=== PATIENT | female | born 1930 | race Caucasian/White ===

== ENCOUNTER → 2018-07-10 | Outpatient (CLI) | payer MEDICARE ==
[2018-07-10 13:32] LABS: Ionized Calcium 5.1 mg/dL (4.5-5.3)
[2018-07-10 19:19] LABS: Vitamin D 25 Hydroxy 23.7 ng/mL (30.0-100.0)
[2018-07-10 19:57] LABS: Parathyroid Hormone Intact 115.6 pg/mL (14.0-72.0)
[2018-07-11 07:19] LABS: Creatinine 24 Hour,Urine 499.2 mg/24hr (800.0-1800.0)
== END ==
LOC: LABWHC1 11:35
PROVIDERS: ATTEND Nurse Practitioner Family
DX: N18.9 Chronic kidney disease, unspecified (principal); E83.52 Hypercalcemia
CPT/HCPCS: 36415; 82306; 82330; 82575; 83970

== ENCOUNTER → 2018-07-11 | Outpatient (CLI) | payer MEDICARE ==
--- NOTE | 2018-07-14 07:19 | US ---
EXAMINATION TYPE: US kidneys/renal and bladder DATE OF EXAM: 07/11/2018 COMPARISON: CLINICAL HISTORY: R94.4, N18.4. Abn labs, no pain EXAM MEASUREMENTS: Right Kidney: 5.8 x 2.3 x 3.0 cm Left Kidney: 8.9 x 3.8 x 5.4 cm Right Kidney: Appears small in size. Cortical thinning. Renal sinus appears echogenic. Left Kidney: appears larger in size compared to contralateral kidney Bladder: appears wnl Left jet seen Cortical medullary differentiation maintained. There is no ascites. IMPRESSION: Right kidney somewhat atrophic.
== END ==
LOC: RADUSMAIN 16:07
PROVIDERS: ATTEND Nurse Practitioner Family
DX: N26.1 Atrophy of kidney (terminal) (principal); N18.4 Chronic kidney disease, stage 4 (severe)
CPT/HCPCS: 76770

== ENCOUNTER → 2018-08-06 | Outpatient (CLI) | payer MEDICARE ==
[2018-08-06 14:21] LABS: Basophils # (A) 0.1 k/uL (0-0.2); Basophils % (A) 1 %; Eosinophils # (A) 0.2 k/uL (0-0.7); Eosinophils % (A) 1 %; HGB 15.2 gm/dL (11.4-16.0); Lymphocytes % (A) 32 %; MCH 29.7 pg (25.0-35.0); MCV 95.6 fL (80.0-100.0); Mean Platelet Volume 7.7; Monocytes # (A) 0.5 k/uL (0-1.0); Monocytes % (A) 4 %; Neutrophils # (A) 7.7 k/uL (1.3-7.7); Neutrophils % (A) 60 %; Platelet Count 215 k/uL (150-450); RBC 5.12 m/uL (3.80-5.40); RDW 12.4 % (11.5-15.5); WBC 12.8 k/uL (3.8-10.6)
[2018-08-06 14:48] LABS: Appearance,Urine Clear (Clear); Bacteria,Urine Rare /hpf; Bilirubin,Urine Negative (Negative); Blood,Urine Small (Negative); Color,Urine Yellow; Glucose,Urine (UA) Negative (Negative); Hyaline Casts,Urine 12 /lpf (0-2); Ketones,Urine Negative (Negative); Leukocyte Esterase,Urine Trace (Negative); Mucus,Urine Rare /hpf; Nitrite,Urine Negative (Negative); Protein,Urine Negative (Negative); RBC,Urine 19 /hpf (0-5); Specific Gravity,Urine 1.013 (1.001-1.035); Squamous Epithelial Cell,Urine 3 /hpf (0-4); Urobilinogen,Urine <2.0 mg/dL (<2.0); WBC,Urine 1 /hpf (0-5)
[2018-08-06 18:57] LABS: Parathyroid Hormone Intact 144.1 pg/mL (14.0-72.0)
[2018-08-06 21:10] LABS: Iron Saturation 21.34 (12.00-45.00); Protein, Total 6.2 g/dL (6.2-8.2)
[2018-08-06 21:17] LABS: Total Protein,Urine Random 10.4 mg/dL (0.0-13.5)
[2018-08-06 21:18] LABS: Creatinine,Urine Random 82.4 mg/dL
[2018-08-06 21:30] LABS: Albumin 4.2 g/dL (3.80-4.90); Anion Gap 5.4 mmol/L (4.00-12.00); Calcium 9.8 mg/dL (8.7-10.3); Carbon Dioxide 33.6 mmol/L (21.6-31.8); Magnesium 2.2 mg/dL (1.5-2.4); Phosphorus 3.5 mg/dL (2.4-5.1); Potassium 4.3 mmol/L (3.5-5.5); Uric Acid 11.5 mg/dL (2.9-7.7)
== END | disposition home or self-care (01) ==
LOC: LABWHC1 13:35
PROVIDERS: ATTEND Internal Medicine Nephrology
DX: N18.4 Chronic kidney disease, stage 4 (severe) (principal); D63.1 Anemia in chronic kidney disease; N25.81 Secondary hyperparathyroidism of renal origin; E55.9 Vitamin D deficiency, unspecified; M10.9 Gout, unspecified; N39.0 Urinary tract infection, site not specified
CPT/HCPCS: 36415; 80048; 81001; 82040; 82306; 82570; 82728; 83540; 83550; 83735; 83970; 84100; 84156; 84165; 84550; 85025; 86335

== ENCOUNTER 2018-08-17 06:36 | Inpatient (IN) | payer MEDICARE ==
[2018-08-17] MEDS ORDERED: SODIUM CHLORIDE 0.9% 500 ML 500 ML IV STA (06:43)
[2018-08-17] MEDS ORDERED: DILTIAZEM DRIP BOLUS FROM BAG 1 MG SOLN IV ONE ×2 (06:44→16:00)
--- NOTE | 2018-08-17 06:47 | ED ---
Chest Pain HPI - General Stated Complaint: chest pain Source: patient, EMS Mode of arrival: EMS Limitations: no limitations - History of Present Illness Initial Comments: She is a pleasant 88-year-old female presents to the emergency department today for evaluation of sudden onset of chest pain. Patient reports she woke this morning experiencing chest pain or palpitations. She called 911. Upon EMS arrival she was reported 8 out of 10 chest pain radiating from her chest to her back. She was noted be in A. fib with RVR with heart rate in the 150s. She was given full dose aspirin and sublingual nitro reports her pain resolved after the nitro. Upon arrival to the emergency department patient continues to have palpitations but reports chest pain is resolved. She also plans of mild headache which she attributes to taking the nitro. - Related Data Home Medications Medication Instructions Recorded Confirmed Metoprolol Tartrate [Lopressor] 25 mg PO BID 05/14/16 08/17/18 RX: ALPRAZolam [Xanax] 0.25 mg PO DAILY PRN 05/14/16 08/17/18 Allopurinol [Zyloprim] 100 mg PO DAILY 08/17/18 08/17/18 Apixaban [Eliquis] 2.5 mg PO BID 08/17/18 08/17/18 Ergocalciferol [Vitamin D2] 50,000 unit PO Q14D 08/17/18 08/17/18 Furosemide [Lasix] 20 mg PO Q48H 08/17/18 08/17/18 Furosemide [Lasix] 40 mg PO Q48H 08/17/18 08/17/18 RX: Citalopram Hydrobromide 20 mg PO DAILY 08/17/18 08/17/18 [CeleXA] RX: Lansoprazole 30 mg PO DAILY 08/17/18 08/17/18 Vit C/E/Zn/Coppr/Lutein/Zeaxan 1 cap PO BID 08/17/18 08/17/18 [Preservision Areds 2 Softgel] Allergies Allergy/AdvReac Type Severity Reaction Status Date / Time No Known Allergies Allergy Verified 08/17/18 07:48 Review of Systems ROS Statement: Those systems with pertinent positive or pertinent negative responses have been documented in the HPI. ROS Other: All systems not noted in ROS Statement are negative. EKG Findings - EKG Comments: EKG Findings:: EKG obtained at 6:42 AM, rate is 135, rhythm appears to be atrial flutter, there are ST depressions no acute elevations. Will repeat one patient's heart rate improves. Past Medical History Past Medical History: Hypertension, Osteoarthritis (OA) Additional Past Medical History / Comment(s): Hx of non healing ulcer L leg tx at [facility] and now healed. History of Any Multi-Drug Resistant Organisms: None Reported Past Surgical History: Adenoidectomy, Breast Surgery, Tonsillectomy, Tubal Ligation Additional Past Surgical History / Comment(s): Debridements L anterior leg ulcer , colonoscopies-normal, breast lumpectomy (unsure which side) benign. Past Anesthesia/Blood Transfusion Reactions: No Reported Reaction Past Psychological History: Depression Smoking Status: Former smoker Past Alcohol Use History: Daily Past Drug Use History: None Reported - Past Family History Sister(s) Family Medical History: CVA/TIA Son(s) Family Medical History: No Reported History Daughter(s) Family Medical History: No Reported History Mother Family Medical History: No Reported History Additional Family Medical History / Comment(s): Mother was healthy and at the age of 90yrs. Father Family Medical History: No Reported History Additional Family Medical History / Comment(s): Father at the age of 79yrs. He was healthy. General Exam Limitations: no limitations Course Vital Signs 08/17/18 08/17/18 08/17/18 06:39 06:40 06:42 Temperature 99.0 F Pulse Rate 141 H Respiratory 16 Rate Blood Pressure 164/93 O2 Sat by Pulse 95 91 L 95 Oximetry 08/17/18 08/17/18 08/17/18 06:48 07:00 07:20 Temperature Pulse Rate 144 H 141 H 138 H Respiratory 27 H 20 Rate Blood Pressure 150/100 148/95 O2 Sat by Pulse 92 L 94 L Oximetry 08/17/18 07:40 Temperature Pulse Rate 141 H Respiratory 16 Rate Blood Pressure 154/116 O2 Sat by Pulse 94 L Oximetry Chest Pain MDM - [facility] Patient was seen and evaluated immediately upon arrival to the emergency department, patient was in no acute distress but noted to be profoundly tachycardic with heart rate in the 150s Patient received ASA and Nitro prior to arrival with resolution of her chest pain Initial EKG appears to be A-flutter with a 2:1 block Cardiac workup ordered Cardizem Bolus and gtt ordered Heart rate Remains in the 140s after Cardizem Patient care was discussed with cardiology infusion nurse Dr. Hensley who recommends 2.5 mg push of IV Lopressor with a repeat dose 5 minutes later, states that if the patient does not respond to this begin an amiodarone drip. If patient remains in RVR would consider cardioversion. Patient care was discussed with Dr. Mccabe patient's primary care physician who accepts the admission with a consult to cardiology Critical Care Time Critical Care Time: Yes Total Critical Care Time: 30 Disposition Clinical Impression: Chest pain, Atrial flutter with rapid ventricular response, CKD (chronic kidney disease) Disposition: ADMITTED IP TO THIS HOSP Referrals: None,Stated [REFERRING] - 1-2 days
--- NOTE | 2018-08-17 07:06 | XR ---
EXAMINATION TYPE: XR chest 2V DATE OF EXAM: 08/17/2018 HISTORY: Chest Pain. REFERENCE: Previous study dated 05/14/2016. FINDINGS: Lung volumes are prominent. The heart is enlarged. There is vascular congestion and subtle interstitial change. I cannot exclude a small left effusion. IMPRESSION: 1. COPD. 2. CARDIOMEGALY. 3. VASCULAR CONGESTION AND MILD EDEMA. 4. I CANNOT EXCLUDE A SMALL LEFT EFFUSION.
[2018-08-17 07:08] LABS: Basophils # (A) 0.1 k/uL (0-0.2); Basophils % (A) 1 %; Eosinophils # (A) 0.3 k/uL (0-0.7); Eosinophils % (A) 1 %; HCT 47.7 % (34.0-46.0); HGB 14.8 gm/dL (11.4-16.0); Lymphocytes # (A) 3.6 k/uL (1.0-4.8); Lymphocytes % (A) 20 %; MCH 28.8 pg (25.0-35.0); Monocytes # (A) 0.8 k/uL (0-1.0); Monocytes % (A) 4 %; Neutrophils # (A) 13.4 k/uL (1.3-7.7); Neutrophils % (A) 73 %; Platelet Count 200 k/uL (150-450); RBC 5.13 m/uL (3.80-5.40); RDW 12.6 % (11.5-15.5); WBC 18.4 k/uL (3.8-10.6)
[2018-08-17] MEDS: DILTIAZEM 50 MG in SODIUM CHLORIDE 0.9% 40 ML IV SCH ×3 (07:18→22:41)
[2018-08-17] MEDS ORDERED: FUROSEMIDE 10 MG/ML 4 ML VIAL IV STA ×2 (07:23→16:05)
[2018-08-17 07:25] LABS: INR 1.1 (<1.2); Partial Thromboplastin Time 23.4 sec (22.0-30.0); Prothrombin Time 11.2 sec (9.0-12.0)
[2018-08-17 07:50] LABS: Albumin 3.8 g/dL (3.5-5.0); Calcium 9.4 mg/dL (8.4-10.2); Magnesium 1.9 mg/dL (1.6-2.3); Potassium 3.6 mmol/L (3.5-5.1); Total Protein 6.7 g/dL (6.3-8.2)
[2018-08-17 07:52] LABS: Creatine Kinase <20 U/L (30-135)
[2018-08-17 08:05] LABS: Creatine Kinase MB 0.5 ng/mL (0.0-2.4); Troponin I 0.023 ng/mL (0.000-0.034)
[2018-08-17] MEDS ORDERED: NALOXONE 0.4 MG/ML 1 ML VIAL IV PRN (08:06)
[2018-08-17] MEDS ORDERED: METOPROLOL TARTRATE 5 MG/5 ML VIAL IVP SCH (08:15)
[2018-08-17 14:15] LABS: Troponin I 0.344 ng/mL (0.000-0.034)
[2018-08-17 15:05] VITALS: BMI 27.1
[2018-08-17] MEDS: ALLOPURINOL 100 MG TAB PO SCH (15:46)
[2018-08-17] MEDS: PANTOPRAZOLE 40 MG TABLET PO SCH (15:46)
[2018-08-17] MEDS: CITALOPRAM HYDROBROMIDE 20 MG TAB PO SCH (15:46)
[2018-08-17] MEDS: APIXABAN 2.5 MG TABLET PO SCH ×2 (15:46→20:13)
[2018-08-17] MEDS ORDERED: MORPHINE SULFATE 2 MG/ML SYRINGE IVP STA (16:05)
[2018-08-17] MEDS: ALPRAZolam 0.25 MG TAB PO PRN (16:15)
[2018-08-17] MEDS: METOPROLOL TARTRATE 25 MG TAB PO SCH (17:32)
[2018-08-17] MEDS: VIT A,C & E-LUTEIN-MINERALS 1 EACH TAB PO SCH ×2 (17:34→22:41)
[2018-08-18] MEDS: DILTIAZEM 50 MG in SODIUM CHLORIDE 0.9% 40 ML IV SCH (04:28)
[2018-08-18] MEDS: PANTOPRAZOLE 40 MG TABLET PO SCH (06:14)
--- NOTE | 2018-08-18 07:24 | XR ---
EXAMINATION TYPE: XR chest 2V DATE OF EXAM: 08/18/2018 COMPARISON: 08/17/2018 HISTORY: 88-year-old female CHF, difficulty breathing, shortness of breath TECHNIQUE: PA and lateral views FINDINGS: Heart mildly enlarged. Bilateral hilar prominence with diffuse interstitial opacities, hyperinflation , and relative upper lung lucencies. Focal rounded left upper lobe opacity. Small effusions. Increase d from prior exam. Some patchy bibasilar densities are also increased. IMPRESSION: 1. CHF superimposed on COPD. There is early interstitial pulmonary edema, slightly worsened from prio r. 2. Small effusions with adjacent atelectasis and/or consolidation. 3. Focal nodular density at the left upper lobe previously obscured by an EKG lead. Continued follow- up recommended to ensure clearance with treatment. If the finding persists, CT may be indicated.
[2018-08-18] MEDS: METOPROLOL TARTRATE 25 MG TAB PO SCH (07:49)
[2018-08-18 08:17] LABS: Calcium 9.6 mg/dL (8.4-10.2)
[2018-08-18 08:27] LABS: Basophils # (A) 0.1 k/uL (0-0.2); Basophils % (A) 0 %; Eosinophils # (A) 0.1 k/uL (0-0.7); Eosinophils % (A) 0 %; HCT 50.1 % (34.0-46.0); HGB 15.1 gm/dL (11.4-16.0); Lymphocytes # (A) 4.1 k/uL (1.0-4.8); Lymphocytes % (A) 20 %; MCH 28.4 pg (25.0-35.0); MCHC 30.1 g/dL (31.0-37.0); MCV 94.3 fL (80.0-100.0); Mean Platelet Volume 8.3; Monocytes # (A) 0.7 k/uL (0-1.0); Monocytes % (A) 3 %; Neutrophils # (A) 16.1 k/uL (1.3-7.7); Neutrophils % (A) 76 %; Platelet Count 190 k/uL (150-450); RBC 5.32 m/uL (3.80-5.40); RDW 12.9 % (11.5-15.5); WBC 21.2 k/uL (3.8-10.6)
[2018-08-18 08:29] LABS: Potassium 4.6 mmol/L (3.5-5.1)
[2018-08-18] MEDS ORDERED: FUROSEMIDE 20 MG TAB PO SCH (09:00)
[2018-08-18] MEDS: APIXABAN 2.5 MG TABLET PO SCH ×2 (09:21→20:09)
[2018-08-18] MEDS: CITALOPRAM HYDROBROMIDE 20 MG TAB PO SCH (09:22)
[2018-08-18] MEDS: ALLOPURINOL 100 MG TAB PO SCH (09:22)
[2018-08-18] MEDS: ALPRAZolam 0.25 MG TAB PO PRN (10:03)
[2018-08-18] MEDS: VIT A,C & E-LUTEIN-MINERALS 1 EACH TAB PO SCH ×2 (10:05→20:09)
[2018-08-18] MEDS ORDERED: METOPROLOL TARTRATE 50 MG TAB PO STA (13:30)
--- NOTE | 2018-08-18 15:28 | P.CRDCN ---
History of Present Illness Consult date: 08/18/18 Requesting physician: William Mccabe Consult reason: congestive heart failure Chief complaint: Shortness of breath History of present illness: This is a pleasant 88-year-old female who follows regularly with Dr. VC Wang in the office. She has a known history of paroxysmal atrial fibrillation, renal insufficiency, hypertension, osteoarthritis with recent hip fracture, she resides at [facility]. She presented to the hospital on this occasion with symptoms of chest pressure, feeling her heart racing fast, and associated shortness of breath. EMS arrival, her EKG showed atrial fibrillation with a rapid ventricular response. Chest x-ray showed COPD, cardiomegaly, vascular congestion and mild edema. Small left effusion cannot be excluded. She was given a dose of IV Lasix in the emergency room and then resumed on her home dose of oral diuretics. Repeat chest x-ray was performed this morning which revealed congestive heart failure superimposed on COPD, early interstitial pulmonary edema worse from prior x-ray. EKG shows atrial fibrillation with rapid ventricular response. I pressure 100/68 with a heart rate of 108 to 1:30, 91% on 5 L of oxygen. White blood cell count 18.4 on admission, 21.2 this morning. Hemoglobin 15.1, platelet count 190. Sodium 143 , potassium 4.6, BUN 39, creatinine 1.4. BNP level 2720. TSH 1.28. Troponin 0.023, 0.344, 0.426. At the time of my examination this morning, patient had been given Xanax she was quite sleepy, she is still complaining of significant shortness of breath, her heart rate continues to be in the 1 teens to 130 range on Cardizem at 10 mg per hour. Past Medical History Past Medical History: Atrial Fibrillation, Hypertension, Osteoarthritis (OA) Additional Past Medical History / Comment(s): Renal failure, long-term anticoagulation, hypertension, anxiety, depression, GERD History of Any Multi-Drug Resistant Organisms: None Reported Past Surgical History: Adenoidectomy, Breast Surgery, Tonsillectomy, Tubal Ligation Additional Past Surgical History / Comment(s): Debridements L anterior leg ulcer , colonoscopies-normal, breast lumpectomy (unsure which side) benign. Past Anesthesia/Blood Transfusion Reactions: No Reported Reaction Past Psychological History: Depression Smoking Status: Former smoker Past Alcohol Use History: Daily Past Drug Use History: None Reported - Past Family History Sister(s) Family Medical History: CVA/TIA Son(s) Family Medical History: No Reported History Daughter(s) Family Medical History: No Reported History Mother Family Medical History: No Reported History Additional Family Medical History / Comment(s): Mother was healthy and at the age of 90yrs. Father Family Medical History: No Reported History Additional Family Medical History / Comment(s): Father at the age of 79yrs. He was healthy. Medications and Allergies Home Medications Medication Instructions Recorded Confirmed Type ALPRAZolam [Xanax] 0.25 mg PO DAILY PRN 05/14/16 08/17/18 History Metoprolol Tartrate [Lopressor] 25 mg PO BID 05/14/16 08/17/18 History Allopurinol [Zyloprim] 100 mg PO DAILY 08/17/18 08/17/18 History Apixaban [Eliquis] 2.5 mg PO BID 08/17/18 08/17/18 History Citalopram Hydrobromide [CeleXA] 20 mg PO DAILY 08/17/18 08/17/18 History Ergocalciferol [Vitamin D2] 50,000 unit PO Q14D 08/17/18 08/17/18 History Furosemide [Lasix] 20 mg PO Q48H 08/17/18 08/17/18 History Furosemide [Lasix] 40 mg PO Q48H 08/17/18 08/17/18 History Lansoprazole 30 mg PO DAILY 08/17/18 08/17/18 History Vit C/E/Zn/Coppr/Lutein/Zeaxan 1 cap PO BID 08/17/18 08/17/18 History [Preservision Areds 2 Softgel] Allergies Allergy/AdvReac Type Severity Reaction Status Date / Time No Known Allergies Allergy Verified 08/17/18 07:48 Physical Exam Vitals: Vital Signs Temp Pulse Pulse Resp BP BP Pulse Ox 08/18/18 11:41 97.4 F L 108 H 18 101/68 91 L 08/18/18 07:51 98.2 F 130 H 18 146/87 95 08/18/18 04:00 98.5 F 107 H 18 124/77 92 L 08/18/18 00:00 99.1 F 100 20 129/74 93 L 12/16/18 20:00 96.7 F L 98 20 126/72 92 L 08/17/18 16:00 97.3 F L 124 H 22 137/75 93 L 08/17/18 13:52 97.6 F 113 H 18 122/94 96 08/17/18 13:20 116 H 13 129/94 95 08/17/18 13:00 112 H 22 128/99 96 08/17/18 12:40 122 H 23 140/103 96 08/17/18 12:20 116 H 18 131/90 94 L Intake and Output 08/17/18 08/18/18 08/18/18 22:59 06:59 14:59 Intake Total 70 170 200 Balance 70 170 200 Intake: IV 120 .9 120 Intake, IV Titration 70 50 Amount Diltiazem 50 mg In Sodium 50 50 Chloride 0.9% 40 ml @ Per Protocol IV .Q0M KEVIN Rx#:[id number] Sodium Chloride 0.9% 500 20 ml 500 ml @ 999 mls/hr IV .Q31M [facility]A Rx#:[id number] Oral 200 Other: Voiding Method Bedpan Diaper Weight 69.4 kg PHYSICAL EXAMINATION: GENERAL: 88-year-old female in no acute distress at the time of my examination HEENT: Head is atraumatic, normocephalic. Pupils equal, round. Sclera anicteric. Conjunctiva are clear. Mucous membranes of the mouth are moist. Neck is supple. There is no elevated jugular venous pressure. No carotid bruit is heard. HEART EXAMINATION: R S1 and S2 irregularly irregular a systolic murmur is heard. CHEST EXAMINATION: Severe fine rales to bilateral bases with diminished air entry to the bases. ABDOMEN: Soft, nontender. Bowel sounds are heard. No organomegaly noted. EXTREMITIES: 2+ peripheral pulses with trace evidence of peripheral edema and no calf tenderness noted. NEUROLOGIC patient is awake, alert and oriented X3. . Results 08/18/18 07:10 08/18/18 07:10 Cardiac Enzymes 08/17/18 08/18/18 Range/Units 12:47 07:10 CK-MB (CK-2) 2.0 (0.0-2.4) ng/mL Troponin I 0.344 H* 0.426 H* (0.000-0.034) ng/mL CBC 08/18/18 Range/Units 07:10 WBC 21.2 H (3.8-10.6) k/uL RBC 5.32 (3.80-5.40) m/uL Hgb 15.1 (11.4-16.0) gm/dL Hct 50.1 H (34.0-46.0) % Plt Count 190 (150-450) k/uL Comprehensive Metabolic Panel 08/18/18 Range/Units 07:10 Sodium 143 (137-145) mmol/L Potassium 4.6 (3.5-5.1) mmol/L Chloride 105 (98-107) mmol/L Carbon Dioxide 24 (22-30) mmol/L BUN 39 H (7-17) mg/dL Creatinine 1.44 H (0.52-1.04) mg/dL Glucose 133 H (74-99) mg/dL Calcium 9.6 (8.4-10.2) mg/dL Current Medications Generic Name Dose Route Start Last Admin Trade Name Freq PRN Reason Stop Dose Admin Allopurinol 100 mg 08/17/18 12:15 08/18/18 09:22 Zyloprim PO 100 mg DAILY KEVIN Administration Alprazolam 0.25 mg 08/17/18 12:04 08/18/18 10:03 Xanax PO 0.25 mg DAILY PRN Administration Anxiety Apixaban 2.5 mg 08/17/18 12:15 08/18/18 09:21 Eliquis PO 2.5 mg BID KEVIN Administration Citalopram Hydrobromide 20 mg 08/17/18 12:15 08/18/18 09:22 Celexa PO 20 mg DAILY KEVIN Administration Furosemide 40 mg 08/18/18 21:00 Lasix IV Q12HR KEVIN Diltiazem HCl 50 mg/ Sodium 50 mls @ 0 mls/hr 08/17/18 06:45 08/18/18 04:28 Chloride IV 10 mls/hr .Q0M KEVIN 10 mls/hr Administration Protocol Per Protocol Metoprolol Tartrate 25 mg 08/17/18 21:00 08/18/18 07:49 Lopressor PO 25 mg BID KEVIN Administration Multivitamins/Minerals 1 each 08/17/18 12:15 08/18/18 10:05 Ivite PO 1 each BID KEVIN Administration Naloxone HCl 0.2 mg 08/17/18 08:06 Narcan IV Q2M PRN Opioid Reversal Pantoprazole Sodium 40 mg 08/17/18 12:15 08/18/18 06:14 Protonix PO 40 mg [id number] Administration Intake and Output 08/17/18 08/18/18 08/18/18 22:59 06:59 14:59 Intake Total 70 170 200 Balance 70 170 200 Intake: IV 120 .9 120 Intake, IV Titration 70 50 Amount Diltiazem 50 mg In Sodium 50 50 Chloride 0.9% 40 ml @ Per Protocol IV .Q0M KEVIN Rx#:[id number] Sodium Chloride 0.9% 500 20 ml 500 ml @ 999 mls/hr IV .Q31M STA Rx#:[id number] Oral 200 Other: Voiding Method Bedpan Diaper Weight 69.4 kg 08/18/18 07:10 08/18/18 07:10 EKG Interpretations (text) EKG shows atrial fibrillation with rapid ventricular response Assessment and Plan Plan: Assessment and plan #1 atrial fibrillation with rapid ventricular response, paroxysmal, on anticoagulation in the form of Eliquis #2 systolic congestive heart failure acute on chronic, could be exacerbated by A. fib with RVR. #3 hypertension #4 recent hip surgery Plan We will obtain an echocardiogram with Doppler study, check a TSH level. Continue anticoagulation. We will also discontinue the oral diuretics and start the patient on IV Lasix. Continue to monitor intake and output along with daily weights and daily lytes BUN and creatinine. IV Cardizem will be discontinued and patient's dose of beta annemarie increased. Further recommendations to follow. DNP note has been reviewed, I agree with a documented findings and plan of care. Patient was seen and examined.
--- NOTE | 2018-08-18 17:11 | P.HPIM ---
History of Present Illness H&P Date: 08/18/18 Chief Complaint: Shortness of breath This is a pleasant 88-year-old female patient of Dr. Mccabe's. Known history of paroxysmal atrial fibrillation renal insufficiency hypertension osteoarthritis with recent hip fracture. Patient resides at [facility]. Currently presents to the hospital with chest pressure and heart racing shortness of breath. On arrival her EKG demonstrated A. fib with rapid ventricular response to history x-ray demonstrated COPD cardiomegaly with vascular congestion and edema EKG this morning demonstrates A. fib with rapid ventricular response. Pressure was 100/68 sats were 91% on 5 L. White count was 18.4 on admission 21.2 this morning BUN 39 creatinine 1.4 this is her baseline Review of Systems Constitutional: Reports as per HPI Ears, nose, mouth and throat: Reports as per HPI Cardiovascular: Reports chest pain, Reports irregular heart beat, Reports rapid heart beat, Reports shortness of breath Respiratory: Reports as per HPI Gastrointestinal: Reports as per HPI Genitourinary: Reports as per HPI Menstruation: Reports as per HPI Musculoskeletal: Reports as per HPI Integumentary: Reports as per HPI Neurological: Reports as per HPI Psychiatric: Reports as per HPI Past Medical History Past Medical History: Atrial Fibrillation, Hypertension, Osteoarthritis (OA) Additional Past Medical History / Comment(s): Renal failure, long-term anticoagulation, hypertension, anxiety, depression, GERD History of Any Multi-Drug Resistant Organisms: None Reported Past Surgical History: Adenoidectomy, Breast Surgery, Tonsillectomy, Tubal Ligation Additional Past Surgical History / Comment(s): Debridements L anterior leg ulcer , colonoscopies-normal, breast lumpectomy (unsure which side) benign. Past Anesthesia/Blood Transfusion Reactions: No Reported Reaction Past Psychological History: Depression Smoking Status: Former smoker Past Alcohol Use History: Daily Past Drug Use History: None Reported - Past Family History Sister(s) Family Medical History: CVA/TIA Son(s) Family Medical History: No Reported History Daughter(s) Family Medical History: No Reported History Mother Family Medical History: No Reported History Additional Family Medical History / Comment(s): Mother was healthy and at the age of 90yrs. Father Family Medical History: No Reported History Additional Family Medical History / Comment(s): Father at the age of 79yrs. He was healthy. Medications and Allergies Home Medications Medication Instructions Recorded Confirmed Type ALPRAZolam [Xanax] 0.25 mg PO DAILY PRN 05/14/16 08/17/18 History Metoprolol Tartrate [Lopressor] 25 mg PO BID 05/14/16 08/17/18 History Allopurinol [Zyloprim] 100 mg PO DAILY 08/17/18 08/17/18 History Apixaban [Eliquis] 2.5 mg PO BID 08/17/18 08/17/18 History Citalopram Hydrobromide [CeleXA] 20 mg PO DAILY 08/17/18 08/17/18 History Ergocalciferol [Vitamin D2] 50,000 unit PO Q14D 08/17/18 08/17/18 History Furosemide [Lasix] 20 mg PO Q48H 08/17/18 08/17/18 History Furosemide [Lasix] 40 mg PO Q48H 08/17/18 08/17/18 History Lansoprazole 30 mg PO DAILY 08/17/18 08/17/18 History Vit C/E/Zn/Coppr/Lutein/Zeaxan 1 cap PO BID 08/17/18 08/17/18 History [Preservision Areds 2 Softgel] Allergies Allergy/AdvReac Type Severity Reaction Status Date / Time No Known Allergies Allergy Verified 08/17/18 07:48 Physical Exam Osteopathic Statement: *. No significant issues noted on an osteopathic structural exam other than those noted in the History and Physical/Consult. Vitals: Vital Signs Temp Pulse Resp BP Pulse Ox 08/18/18 12:00 104 H 08/18/18 11:41 97.4 F L 108 H 18 101/68 91 L 08/18/18 07:51 98.2 F 130 H 18 146/87 95 08/18/18 04:00 98.5 F 107 H 18 124/77 92 L 08/18/18 00:00 99.1 F 100 20 129/74 93 L 08/17/18 20:00 96.7 F L 98 20 126/72 92 L Intake and Output 08/18/18 08/18/18 08/18/18 06:59 14:59 22:59 Intake Total 170 200 Balance 170 200 Intake: IV 120 .9 120 Intake, IV Titration 50 Amount Diltiazem 50 mg In Sodium 50 Chloride 0.9% 40 ml @ Per Protocol IV .Q0M [facility] Rx#:[id number] Oral 200 Other: Weight 69.4 kg General: [Patient awake, alert and oriented times 3. Patient in no acute distress.] HEENT: [PERRL. EOMI. No pharyngeal erythema or exudate.] Neck: [No adenopathy.] Cardiac: [Heart regularly irregular rapid rate No S3. No S4. No clicks, rubs.Systolic ejection murmur noted Lungs ; fine basilar crackles, diminished air exchange to both lung obrien Abdomen: [No mass. No organomegaly. Bowel sounds presnt and normoactive in all 4 quadrants.] Extremes: [No edema no cyanosis no claudication normal pulses] : [] Musculoskeletal: [No joint erythema, edema or tenderness.] Skin: [No rash.] Neurologic: [No lateralizing deficits. CN II - XII grossly intact.] Lymphatic: [No adenopathy.] Results CBC & Chem 7: 08/18/18 07:10 08/18/18 07:10 Labs: Abnormal Lab Results - Last 24 Hours (Table) 08/18/18 08/18/18 08/18/18 Range/Units 07:10 07:10 07:10 WBC 21.2 H (3.8-10.6) k/uL Hct 50.1 H (34.0-46.0) % MCHC 30.1 L (31.0-37.0) g/dL Neutrophils # 16.1 H (1.3-7.7) k/uL D-Dimer (<0.60) mg/L FEU BUN 39 H (7-17) mg/dL Creatinine 1.44 H (0.52-1.04) mg/dL Glucose 133 H (74-99) mg/dL Troponin I 0.426 H* (0.000-0.034) ng/mL 08/18/18 Range/Units 13:57 WBC (3.8-10.6) k/uL Hct (34.0-46.0) % MCHC (31.0-37.0) g/dL Neutrophils # (1.3-7.7) k/uL D-Dimer 0.64 H (<0.60) mg/L FEU BUN (7-17) mg/dL Creatinine (0.52-1.04) mg/dL Glucose (74-99) mg/dL Troponin I (0.000-0.034) ng/mL Thrombosis Risk Factor Assmnt - Choose All That Apply Any of the Below Risk Factors Present?: No Other Risk Factors: No Thrombosis Risk Factor Assessment Level: Very Low Risk Assessment and Plan (1) Atrial flutter with rapid ventricular response Current Visit: Yes Status: Acute Code(s): I48.92 - UNSPECIFIED ATRIAL FLUTTER SNOMED Code(s): 3417165 (2) CKD (chronic kidney disease) Current Visit: Yes Status: Acute Code(s): N18.9 - CHRONIC KIDNEY DISEASE, UNSPECIFIED SNOMED Code(s): 670360932 (3) Chest pain Current Visit: Yes Status: Acute Code(s): R07.9 - CHEST PAIN, UNSPECIFIED SNOMED Code(s): 14915830 Plan: Assessment and plan Atrial fibrillation with rapid ventricular response and anticoagulation Eliquis Systolic congestive heart failure acute on chronic Hypertension Renal insufficiency Cardiology consult Consider nephrology consult however patient's BUN and creatinine are currently baseline
[2018-08-18 19:10] LABS: Appearance,Urine Clear (Clear); Bacteria,Urine Few /hpf; Bilirubin,Urine Negative (Negative); Blood,Urine Moderate (Negative); Color,Urine Yellow; Glucose,Urine (UA) Negative (Negative); Hyaline Casts,Urine 11 /lpf (0-2); Ketones,Urine Negative (Negative); Leukocyte Esterase,Urine Small (Negative); Mucus,Urine Rare /hpf; Nitrite,Urine Negative (Negative); Protein,Urine Negative (Negative); RBC,Urine 7 /hpf (0-5); Specific Gravity,Urine 1.011 (1.001-1.035); Squamous Epithelial Cell,Urine 2 /hpf (0-4); Urobilinogen,Urine <2.0 mg/dL (<2.0); WBC,Urine 3 /hpf (0-5)
[2018-08-18] MEDS: METOPROLOL TARTRATE 50 MG TAB PO SCH (20:09)
[2018-08-18] MEDS: FUROSEMIDE 10 MG/ML 4 ML VIAL IV SCH (20:10)
[2018-08-18 20:49] LABS: Glucose,Whole Blood 123 mg/dL (75-99)
[2018-08-18] MEDS ORDERED: AZITHROMYCIN 500 MG in SODIUM CHLORIDE 0.9% 250 ML IVPB SCH (22:15)
[2018-08-19 06:03] LABS: Glucose,Whole Blood 142 mg/dL (75-99)
[2018-08-19] MEDS: PANTOPRAZOLE 40 MG TABLET PO SCH (06:06)
[2018-08-19] MEDS ORDERED: FUROSEMIDE 40 MG TAB PO SCH (09:00)
[2018-08-19] MEDS: CITALOPRAM HYDROBROMIDE 20 MG TAB PO SCH (10:00)
[2018-08-19] MEDS: APIXABAN 2.5 MG TABLET PO SCH ×2 (10:00→20:25)
[2018-08-19] MEDS: ALLOPURINOL 100 MG TAB PO SCH (10:00)
[2018-08-19] MEDS: FUROSEMIDE 10 MG/ML 4 ML VIAL IV SCH ×2 (10:01→20:25)
[2018-08-19] MEDS: METOPROLOL TARTRATE 50 MG TAB PO SCH ×2 (10:01→20:24)
[2018-08-19] MEDS: VIT A,C & E-LUTEIN-MINERALS 1 EACH TAB PO SCH ×2 (10:01→20:24)
[2018-08-19] MEDS ORDERED: DEXTROSE 5% IN WATER 100 ML with AMIODARONE 150 MG IV ONE (11:22)
--- NOTE | 2018-08-19 11:29 | P.NPCON ---
History of Present Illness - Reason for Consult acute renal failure - History of Present Illness Reason for consultation: Acute kidney injury History of present illness: Patient is a 88-year-old female seen in renal consultation for acute kidney injury. Patient's creatinine in May 2016 was 0.77 but this ear of renal function seems to have declined. Creatinine was in the range of 1.7-1.9 the last 2 months. This admission her creatinine is stable near 1.4. Patient presented to the hospital with left-sided chest pain. She was also having pain in her left arm. She was also noted to be in A. fib with RVR and was started on Cardizem drip. Her heart rate is still in the range of 110-120. She is maintained on Lopressor. She is also on anticoagulation. She was noted to have vascular congestion on chest x-ray and is currently maintained on Lasix 40 mg IV twice daily. Admits to good urine output. No hematuria or dysuria. No history of diabetes. No proteinuria noted on UA. No vomiting or diarrhea. Denies use of NSAIDs. Oral intake is fair. Vital signs are stable. General: The patient appeared well nourished and normally developed. HEENT: Head exam is unremarkable. Neck is without jugular venous distension. LUNGS: Lungs are clear to auscultation and percussion. Breath sounds decreased. HEART: Irregular rate and rhythm. ABDOMEN: Abdominal exam reveals normal bowel sounds. Non-tender and non- distended. No evidence of peritonitis. EXTREMITITES: No clubbing, cyanosis, or edema. Past Medical History Past Medical History: Atrial Fibrillation, Hypertension, Osteoarthritis (OA) Additional Past Medical History / Comment(s): Renal failure, long-term anticoagulation, hypertension, anxiety, depression, GERD History of Any Multi-Drug Resistant Organisms: None Reported Past Surgical History: Adenoidectomy, Breast Surgery, Tonsillectomy, Tubal Ligation Additional Past Surgical History / Comment(s): Debridements L anterior leg ulcer , colonoscopies-normal, breast lumpectomy (unsure which side) benign. Past Anesthesia/Blood Transfusion Reactions: No Reported Reaction Past Psychological History: Depression Smoking Status: Former smoker Past Alcohol Use History: Daily Past Drug Use History: None Reported - Past Family History Sister(s) Family Medical History: CVA/TIA Son(s) Family Medical History: No Reported History Daughter(s) Family Medical History: No Reported History Mother Family Medical History: No Reported History Additional Family Medical History / Comment(s): Mother was healthy and at the age of 90yrs. Father Family Medical History: No Reported History Additional Family Medical History / Comment(s): Father at the age of 79yrs. He was healthy. Medications and Allergies Home Medications Medication Instructions Recorded Confirmed Type ALPRAZolam [Xanax] 0.25 mg PO DAILY PRN 05/14/16 08/17/18 History Metoprolol Tartrate [Lopressor] 25 mg PO BID 05/14/16 08/17/18 History Allopurinol [Zyloprim] 100 mg PO DAILY 08/17/18 08/17/18 History Apixaban [Eliquis] 2.5 mg PO BID 08/17/18 08/17/18 History Citalopram Hydrobromide [CeleXA] 20 mg PO DAILY 08/17/18 08/17/18 History Ergocalciferol [Vitamin D2] 50,000 unit PO Q14D 08/17/18 08/17/18 History Furosemide [Lasix] 20 mg PO Q48H 08/17/18 08/17/18 History Furosemide [Lasix] 40 mg PO Q48H 08/17/18 08/17/18 History Lansoprazole 30 mg PO DAILY 08/17/18 08/17/18 History Vit C/E/Zn/Coppr/Lutein/Zeaxan 1 cap PO BID 08/17/18 08/17/18 History [Preservision Areds 2 Softgel] Allergies Allergy/AdvReac Type Severity Reaction Status Date / Time No Known Allergies Allergy Verified 08/17/18 07:48 Physical Exam Vitals: Vital Signs Temp Pulse Resp BP Pulse Ox 08/19/18 08:00 97.8 F 120 H 18 103/57 97 08/19/18 04:00 97.6 F 113 H 18 92/60 95 08/19/18 00:00 97.8 F 111 H 20 92/71 96 08/18/18 20:00 97.7 F 111 H 20 108/79 96 08/18/18 16:00 97.9 F 90 20 108/75 94 L 08/18/18 12:00 104 H 08/18/18 11:41 97.4 F L 108 H 18 101/68 91 L Intake and Output 08/18/18 08/19/18 08/19/18 22:59 06:59 14:59 Intake Total 120 Output Total 250 Balance -250 120 Intake: Oral 120 Output: Urine 250 Other: Voiding Method Bedside Commode Bedside Commode # Voids 1 Weight 72.4 kg Results - Lab Results Most recent lab results Calcium 9.6 mg/dL (8.4-10.2) 08/18/18 07:10 Magnesium 2.0 mg/dL (1.6-2.3) 08/18/18 07:10 08/18/18 07:10 08/18/18 07:10 Assessment and Plan Plan: Assessment: 1. Acute kidney injury secondary to ATN secondary to hemodynamic instability. Creatinine stable at 1.44 today. Unclear as to what her baseline renal function is. There may very well be a component of underlying chronic kidney disease. No proteinuria on UA. Ultrasound from July 2018 revealed atrophic right kidney and relatively small left kidney. 2. Atrophic right kidney. 3. A. fib with RVR maintained on Lopressor. Also on anticoagulation. Cardiology following. 4. Diastolic CHF. 5. Volume overload. Plan: Maintain Lasix 40 mg IV twice daily. Repeat electrolytes in the morning. Encourage oral intake. Continue to monitor renal function and urine output. Will need to establish her baseline. Thank you for the consultation. I will continue to follow the patient with you during her hospital stay.
[2018-08-19 11:46] LABS: Basophils # (A) 0.1 k/uL (0-0.2); Basophils % (A) 0 %; Eosinophils # (A) 0.1 k/uL (0-0.7); Eosinophils % (A) 1 %; HCT 44.2 % (34.0-46.0); HGB 13.5 gm/dL (11.4-16.0); Lymphocytes # (A) 4.6 k/uL (1.0-4.8); Lymphocytes % (A) 28 %; MCH 28.5 pg (25.0-35.0); MCHC 30.5 g/dL (31.0-37.0); MCV 93.6 fL (80.0-100.0); Mean Platelet Volume 8.6; Monocytes # (A) 0.6 k/uL (0-1.0); Monocytes % (A) 3 %; Neutrophils # (A) 10.7 k/uL (1.3-7.7); Neutrophils % (A) 66 %; Platelet Count 172 k/uL (150-450); RBC 4.72 m/uL (3.80-5.40); RDW 12.8 % (11.5-15.5); WBC 16.3 k/uL (3.8-10.6)
--- NOTE | 2018-08-19 12:00 | ECHOF ---
Referral Reason:chf MEASUREMENTS -------- HEIGHT: 160.0 cm WEIGHT: 69.4 kg BP: 101/68 RVIDd: 2.6 cm (< 3.3) IVSd: 1.1 cm (0.6 - 1.1) LVIDd: 3.8 cm (3.9 - 5.3) LVPWd: 1.1 cm (0.6 - 1.1) IVSs: 1.7 cm LVIDs: 2.9 cm LVPWs: 1.8 cm LA Diam: 4.1 cm (2.7 - 3.8) LAESV Index (A-L): 49.20 ml/m Ao Diam: 2.5 cm (2.0 - 3.7) AV Cusp: 1.4 cm (1.5 - 2.6) MV EXCURSION: 14.273 mm (> 18.000) MV EF SLOPE: 37 mm/s (70 - 150) EPSS: 0.5 cm AV maxP.66 mmHg AV meanP.76 mmHg RAP: 15.00 mmHg RVSP: 50.83 mmHg FINDINGS -------- Atrial fibrillation. This was a technically adequate study. The left ventricular size is normal. There is borderline concentric left ventricular hypertrophy. Overall left ventricular systolic function is moderate-severely impaired with, an EF between 30 - 35 %. The right ventricle is normal in size. LA is severely dilated >40 ml/m2 The right atrium is normal in size. There is mild to moderate aortic valve sclerosis. Moderate mitral annular calcification present. Moderate mitral regurgitation is present. [id number] tricuspid regurgitation present. There is moderate pulmonary hypertension. The r ight ventricular systolic pressure, as measured by Doppler, is 50.83mmHg. Trace/mild (physiologic) pulmonic regurgitation. The aortic root size is normal. The inferior vena cava is with no significant inspiratory collapse which is consistent estimated righ t atrial pressure of >15 mmHg. There is no pericardial effusion. CONCLUSIONS -------- 1. Atrial fibrillation. 2. This was a technically adequate study. 3. The left ventricular size is normal. 4. There is borderline concentric left ventricular hypertrophy. 5. Overall left ventricular systolic function is moderate-severely impaired with, an EF between 30 - 35 %. 6. The right ventricle is normal in size. 7. LA is severely dilated >40 ml/m2 8. The right atrium is normal in size. 9. There is mild to moderate aortic valve sclerosis. 10. Moderate mitral annular calcification present. 11. Moderate mitral regurgitation is present. 12. Hhdz-[id number] tricuspid regurgitation present. 13. There is moderate pulmonary hypertension. 14. The right ventricular systolic pressure, as measured by Doppler, is 50.83mmHg. 15. Trace/mild (physiologic) pulmonic regurgitation. 16. The aortic root size is normal. 17. The inferior vena cava is with no significant inspiratory collapse which is consistent estimated right atrial pressure of >15 mmHg. 18. There is no pericardial effusion. PICCOLOIST: Leslie Aceves RDCS
[2018-08-19 12:01] LABS: Albumin 3.4 g/dL (3.5-5.0); Calcium 9.2 mg/dL (8.4-10.2); Potassium 3.7 mmol/L (3.5-5.1); Total Bilirubin 2.7 mg/dL (0.2-1.3); Total Protein 6.3 g/dL (6.3-8.2)
[2018-08-19] MEDS: AMIODARONE 450 MG in DEXTROSE 5% IN WATER 250 ML IV SCH ×4 (12:35→19:37)
--- NOTE | 2018-08-19 14:38 | P.PN ---
Subjective Progress Note Date: 08/19/18 This is a pleasant 88-year-old female who follows regularly with Dr. VC Wang in the office. She has a known history of paroxysmal atrial fibrillation, renal insufficiency, hypertension, osteoarthritis with recent hip fracture, she resides at [facility]. She presented to the hospital on this occasion with symptoms of chest pressure, feeling her heart racing fast, and associated shortness of breath. EMS arrival, her EKG showed atrial fibrillation with a rapid ventricular response. Chest x-ray showed COPD, cardiomegaly, vascular congestion and mild edema. Small left effusion cannot be excluded. She was given a dose of IV Lasix in the emergency room and then resumed on her home dose of oral diuretics. Repeat chest x-ray was performed this morning which revealed congestive heart failure superimposed on COPD, early interstitial pulmonary edema worse from prior x-ray. EKG shows atrial fibrillation with rapid ventricular response. I pressure 100/68 with a heart rate of 108 to 1:30, 91% on 5 L of oxygen. White blood cell count 18.4 on admission, 21.2 this morning. Hemoglobin 15.1, platelet count 190. Sodium 143 , potassium 4.6, BUN 39, creatinine 1.4. BNP level 2720. TSH 1.28. Troponin 0.023, 0.344, 0.426. At the time of my examination this morning, patient had been given Xanax she was quite sleepy, she is still complaining of significant shortness of breath, her heart rate continues to be in the 1 teens to 130 range on Cardizem at 10 mg per hour. 2017 Patient was seen and examined this morning, much more awake today. Continues to be in A. fib with a heart rate in the 120 to 1:30 range. We have initiated IV amiodarone, we'll continue current dose of beta annemarie. Blood pressure 100/ 60. White blood cell count 16.3, hemoglobin 13.5, platelet count 172. Sodium 140, potassium 3.7, BUN 40, creatinine 1.6. Objective - Vital Signs Vital signs: Vital Signs Temp 97.8 F 08/19/18 08:00 Pulse 97 08/19/18 13:30 Resp 18 08/19/18 12:15 BP 101/64 08/19/18 13:30 Pulse Ox 93 L 08/19/18 12:15 Intake & Output 08/18/18 08/19/18 08/19/18 18:59 06:59 18:59 Intake Total 200 360 Output Total 150 100 Balance 50 -100 360 Weight 72.4 kg Intake: Oral 200 360 Output: Urine 150 100 Other: Voiding Method Bedside Commode # Voids 1 - Exam PHYSICAL EXAMINATION: GENERAL: 88-year-old female in no acute distress at the time of my examination HEENT: Head is atraumatic, normocephalic. Pupils equal, round. Sclera anicteric. Conjunctiva are clear. Mucous membranes of the mouth are moist. Neck is supple. There is no elevated jugular venous pressure. No carotid bruit is heard. HEART EXAMINATION: R S1 and S2 irregularly irregular a systolic murmur is heard. CHEST EXAMINATION: Severe fine rales to bilateral bases with diminished air entry to the bases. ABDOMEN: Soft, nontender. Bowel sounds are heard. No organomegaly noted. EXTREMITIES: 2+ peripheral pulses with trace evidence of peripheral edema and no calf tenderness noted. NEUROLOGIC patient is awake, alert and oriented X3. - Labs CBC & Chem 7: 08/19/18 10:39 08/19/18 10:39 Labs: Abnormal Lab Results - Last 24 Hours (Table) 08/18/18 08/18/18 08/18/18 Range/Units 13:12 13:57 20:47 WBC (3.8-10.6) k/uL MCHC (31.0-37.0) g/dL Neutrophils # (1.3-7.7) k/uL D-Dimer 0.64 H (<0.60) mg/L FEU BUN (7-17) mg/dL Creatinine (0.52-1.04) mg/dL Glucose (74-99) mg/dL POC Glucose (mg/dL) 123 H (75-99) mg/dL Total Bilirubin (0.2-1.3) mg/dL Albumin (3.5-5.0) g/dL Urine Blood Moderate H (Negative) Ur Leukocyte Esterase Small H (Negative) Urine RBC 7 H (0-5) /hpf Urine Bacteria Few H (None) /hpf Hyaline Casts 11 H (0-2) /lpf Urine Mucus Rare H (None) /hpf 12/18/18 12/18/18 12/18/18 Range/Units 06:02 10:39 10:39 WBC 16.3 H (3.8-10.6) k/uL MCHC 30.5 L (31.0-37.0) g/dL Neutrophils # 10.7 H (1.3-7.7) k/uL D-Dimer (<0.60) mg/L FEU BUN 40 H (7-17) mg/dL Creatinine 1.60 H (0.52-1.04) mg/dL Glucose 111 H (74-99) mg/dL POC Glucose (mg/dL) 142 H (75-99) mg/dL Total Bilirubin 2.7 H (0.2-1.3) mg/dL Albumin 3.4 L (3.5-5.0) g/dL Urine Blood (Negative) Ur Leukocyte Esterase (Negative) Urine RBC (0-5) /hpf Urine Bacteria (None) /hpf Hyaline Casts (0-2) /lpf Urine Mucus (None) /hpf Microbiology - Last 24 Hours (Table) 08/18/18 22:20 Urine Culture - Preliminary Urine,Voided Assessment and Plan Plan: Assessment and plan #1 atrial fibrillation with rapid ventricular response, paroxysmal, on anticoagulation in the form of Eliquis #2 systolic congestive heart failure acute on chronic, could be exacerbated by A. fib with RVR. #3 hypertension #4 recent hip surgery Plan Cardiogram with Doppler study reveals an ejection fraction of 30-35%, mild to moderate tricuspid regurg. We will start the patient on IV amiodarone today for more optimal heart rate control. If patient continues to remain in rapid atrial fibrillation we may consider elective cardioversion. DNP note has been reviewed, I agree with a documented findings and plan of care. Patient was seen and examined.
--- NOTE | 2018-08-19 15:32 | P.PN ---
Subjective Progress Note Date: 08/19/18 This is a pleasant 88-year-old female patient of Dr. Mccabe's. Known history of paroxysmal atrial fibrillation renal insufficiency hypertension osteoarthritis with recent hip fracture. Patient resides at [facility]. Currently presents to the hospital with chest pressure and heart racing shortness of breath. On arrival her EKG demonstrated A. fib with rapid ventricular response to history x-ray demonstrated COPD cardiomegaly with vascular congestion and edema EKG this morning demonstrates A. fib with rapid ventricular response. Pressure was 100/68 sats were 91% on 5 L. White count was 18.4 on admission 21.2 this morning BUN 39 creatinine 1.4 this is her baseline Above per Dr. Paz 08/19/2018 Patient examined at the bedside. Patient states she is feeling tired and short of breath today. She remains in afib. Rate uncontrolled. She was started on an amiodarone drip per cardiology. Urinalysis was ordered yesterday per cardiology , which did not reveal infectious process. Creatinine today 4.6. Creatinine yesterday was 1.44. Creatinine was 1.7 in July of this year and 1.9 earlier this morning. Nephrology was placed on consult. PHYSICAL EXAM: GENERAL: This is a 88-year-old female in no apparent distress at the time of examination. Pleasant and cooperative. HEENT: Head is atraumatic, normocephalic. Pupils are equal, round, and reactive to light. Sclerae anicteric. Conjunctivae are clear. Mucus membranes of the mouth are moist. Neck is supple. RESPIRATORY: Diminished with crackles to bilateral bases. No use of accessory muscles. Patient maintaining oxygen saturation greater than 92%. No chest wall tenderness is noted on palpation or with deep breathing. CARDIOVASCULAR: Irregular rhythm. S1 and S2 noted. No JVD noted. No S3 or S4 noted. GASTROINTESTINAL: No distention noted. Abdomen soft and round. Normal active bowel sounds auscultated x 4 quadrants. No pain or tenderness noted upon palpation. INTEGUMENTARY: No cyanosis. No jaundice. No rashes noted. No cellulitis noted. EXTREMITIES: 2+ peripheral pulses. trace bilateral lower extremity edema. No calf tenderness noted. NEUROLOGIC: Cranial nerves II-XII intact. PSYCHIATRIC: Awake, alert, and oriented X 3. Appropriate affect. Intact judgement and insight. ASSESSMENT: Atrial fibrillation with RVR, on long-term anticoagulation with Eliquis Acute exacerbation of systolic congestive heart failure, EF 30-35% Leukocytosis and bilateral atelectasis and/or consolidation, can not rule out underlying pneumonia History of hypertension Osteoarthritis Chronic kidney disease, stage III Abnormal troponins, cardiology following PLAN: Cardiology and nephrology on consult. Appreciate recommendations and input Continue IV lasix per cardiology Wean oxygen as tolerated Continue antibiotics Home meds as appropriate Monitor labs GI prophylaxis: Protonix 40 mg PO Daily DVT prophylaxis: Eliquis Monitor vital signs and address as appropriate Discharge planning: Patient to return home when stable Further recommendations pending patient's course Nurse practitioner note has been reviewed by physician. Signing provider agrees with the documented findings, assessment, and plan of care. Objective - Vital Signs Vital signs: Vital Signs Temp 97.7 F 08/19/18 15:12 Pulse 100 08/19/18 15:12 Resp 16 08/19/18 15:12 BP 100/70 08/19/18 15:12 Pulse Ox 94 L 08/19/18 15:12 Intake & Output 08/18/18 08/19/18 08/19/18 18:59 06:59 18:59 Intake Total 200 360 Output Total 150 100 Balance 50 -100 360 Weight 72.4 kg Intake: Oral 200 360 Output: Urine 150 100 Other: Voiding Method Bedside Commode # Voids 1 2 - Labs CBC & Chem 7: 08/19/18 10:39 08/19/18 10:39 Labs: Abnormal Lab Results - Last 24 Hours (Table) 08/18/18 08/18/18 08/19/18 Range/Units 13:12 20:47 06:02 WBC (3.8-10.6) k/uL MCHC (31.0-37.0) g/dL Neutrophils # (1.3-7.7) k/uL BUN (7-17) mg/dL Creatinine (0.52-1.04) mg/dL Glucose (74-99) mg/dL POC Glucose (mg/dL) 123 H 142 H (75-99) mg/dL Total Bilirubin (0.2-1.3) mg/dL Albumin (3.5-5.0) g/dL Urine Blood Moderate H (Negative) Ur Leukocyte Esterase Small H (Negative) Urine RBC 7 H (0-5) /hpf Urine Bacteria Few H (None) /hpf Hyaline Casts 11 H (0-2) /lpf Urine Mucus Rare H (None) /hpf 08/19/18 08/19/18 Range/Units 10:39 10:39 WBC 16.3 H (3.8-10.6) k/uL MCHC 30.5 L (31.0-37.0) g/dL Neutrophils # 10.7 H (1.3-7.7) k/uL BUN 40 H (7-17) mg/dL Creatinine 1.60 H (0.52-1.04) mg/dL Glucose 111 H (74-99) mg/dL POC Glucose (mg/dL) (75-99) mg/dL Total Bilirubin 2.7 H (0.2-1.3) mg/dL Albumin 3.4 L (3.5-5.0) g/dL Urine Blood (Negative) Ur Leukocyte Esterase (Negative) Urine RBC (0-5) /hpf Urine Bacteria (None) /hpf Hyaline Casts (0-2) /lpf Urine Mucus (None) /hpf Microbiology - Last 24 Hours (Table) 08/18/18 22:20 Urine Culture - Preliminary Urine,Voided
[2018-08-19] MEDS: AZITHROMYCIN 500 MG TAB PO SCH (20:24)
[2018-08-19] MEDS: ALPRAZolam 0.25 MG TAB PO PRN (20:26)
[2018-08-20] MEDS: PANTOPRAZOLE 40 MG TABLET PO SCH (06:12)
[2018-08-20] MEDS: AMIODARONE 450 MG in DEXTROSE 5% IN WATER 250 ML IV SCH ×4 (06:13→11:01)
[2018-08-20 07:18] LABS: Basophils % (A) 0 %; Eosinophils # (A) 0.2 k/uL (0-0.7); Eosinophils % (A) 1 %; HCT 42.9 % (34.0-46.0); HGB 13.6 gm/dL (11.4-16.0); Lymphocytes # (A) 4.8 k/uL (1.0-4.8); Lymphocytes % (A) 36 %; MCH 29.7 pg (25.0-35.0); MCHC 31.6 g/dL (31.0-37.0); Mean Platelet Volume 8.8; Monocytes # (A) 0.7 k/uL (0-1.0); Monocytes % (A) 5 %; Neutrophils # (A) 7.3 k/uL (1.3-7.7); Neutrophils % (A) 55 %; Platelet Count 138 k/uL (150-450); RBC 4.57 m/uL (3.80-5.40); RDW 12.9 % (11.5-15.5); WBC 13.2 k/uL (3.8-10.6)
[2018-08-20 07:34] LABS: Albumin 3.1 g/dL (3.5-5.0); Calcium 9.1 mg/dL (8.4-10.2); Magnesium 2.1 mg/dL (1.6-2.3); Potassium 3.5 mmol/L (3.5-5.1); Total Bilirubin 2.7 mg/dL (0.2-1.3)
[2018-08-20] MEDS: METOPROLOL TARTRATE 50 MG TAB PO SCH ×2 (09:06→21:24)
[2018-08-20] MEDS: CITALOPRAM HYDROBROMIDE 20 MG TAB PO SCH (09:06)
[2018-08-20] MEDS: FUROSEMIDE 10 MG/ML 4 ML VIAL IV SCH ×2 (09:06→21:23)
[2018-08-20] MEDS: ALLOPURINOL 100 MG TAB PO SCH (09:06)
[2018-08-20] MEDS: APIXABAN 2.5 MG TABLET PO SCH ×2 (09:06→21:23)
[2018-08-20] MEDS: VIT A,C & E-LUTEIN-MINERALS 1 EACH TAB PO SCH ×2 (09:07→21:24)
--- NOTE | 2018-08-20 11:00 | P.PN ---
Subjective Patient is seen in follow-up for acute kidney injury. Renal function is improving. Creatinine down to 1.3 today. She is currently maintained on Lasix 40 mg IV twice daily. Dyspnea is mildly improved. Admits to good urine output. She is noted to have systolic CHF with ejection fraction of 30-35% with moderate mitral regurgitation and [id number] tricuspid regurgitation. Oral intake is fair. No diarrhea. Vital signs are stable. General: The patient appeared well nourished and normally developed. HEENT: Head exam is unremarkable. Neck is without jugular venous distension. LUNGS: Breath sounds decreased. HEART: Rate and Rhythm are regular. First and second heart sounds normal. No murmurs, rubs or gallops. ABDOMEN: Abdominal exam reveals normal bowel sounds. Non-tender and non- distended. No evidence of peritonitis. EXTREMITITES: No clubbing, cyanosis, or edema. Objective - Vital Signs Vital signs: Vital Signs Temp 97.4 F L 08/20/18 08:00 Pulse 118 H 08/20/18 08:00 Resp 16 08/20/18 08:00 BP 113/67 08/20/18 08:00 Pulse Ox 91 L 08/20/18 08:00 Intake & Output 08/19/18 08/20/18 08/20/18 18:59 06:59 18:59 Intake Total 360 425.817 240 Balance 360 425.817 240 Weight 72.2 kg Intake: Intake, IV Titration 425.817 Amount Amiodarone 450 mg In 425.817 Dextrose 5% in Water 250 ml @ 1 MG/MIN 34.53 mls/ hr IV .[id number] [facility] Rx#: [id number] Oral 360 240 Other: Voiding Method Toilet # Voids 2 1 - Labs CBC & Chem 7: 08/20/18 06:28 08/20/18 06:28 Labs: Abnormal Lab Results - Last 24 Hours (Table) 08/19/18 08/19/18 08/20/18 Range/Units 10:39 10:39 06:28 WBC 16.3 H 13.2 H (3.8-10.6) k/uL MCHC 30.5 L (31.0-37.0) g/dL Plt Count 138 L (150-450) k/uL Neutrophils # 10.7 H (1.3-7.7) k/uL BUN 40 H (7-17) mg/dL Creatinine 1.60 H (0.52-1.04) mg/dL Glucose 111 H (74-99) mg/dL Total Bilirubin 2.7 H (0.2-1.3) mg/dL Total Protein (6.3-8.2) g/dL Albumin 3.4 L (3.5-5.0) g/dL 08/20/18 Range/Units 06:28 WBC (3.8-10.6) k/uL MCHC (31.0-37.0) g/dL Plt Count (150-450) k/uL Neutrophils # (1.3-7.7) k/uL BUN 44 H (7-17) mg/dL Creatinine 1.30 H (0.52-1.04) mg/dL Glucose (74-99) mg/dL Total Bilirubin 2.7 H (0.2-1.3) mg/dL Total Protein 6.0 L (6.3-8.2) g/dL Albumin 3.1 L (3.5-5.0) g/dL Assessment and Plan Plan: Assessment: 1. Acute kidney injury secondary to ATN secondary to hemodynamic instability. Creatinine improved to 1.3 today. Unclear as to what her baseline renal function is. There may very well be a component of underlying chronic kidney disease. No proteinuria on UA. Ultrasound from July 2018 revealed atrophic right kidney and relatively small left kidney. 2. Atrophic right kidney. 3. A. fib with RVR maintained on Lopressor and amiodarone drip. Also on anticoagulation. Cardiology following. 4. Diastolic CHF. 5. Volume overload. Improving. 6. Hypokalemia from diuresis. Plan: Maintain Lasix 40 mg IV twice daily. Replace potassium. 40 mg once today. Repeat electrolytes in the morning. Encourage oral intake. Continue to monitor renal function and urine output. Will need to establish her baseline.
[2018-08-20] MEDS: AMIODARONE 200 MG TAB PO SCH ×2 (11:45→21:23)
[2018-08-20] MEDS: POTASSIUM CHLORIDE ER 20 MEQ TAB.ER PO SCH ×2 (11:45→14:30)
--- NOTE | 2018-08-20 14:10 | P.PN ---
Subjective Progress Note Date: 08/20/18 This is a pleasant 88-year-old female patient of Dr. Mccabe's. Known history of paroxysmal atrial fibrillation renal insufficiency hypertension osteoarthritis with recent hip fracture. Patient resides at [facility]. Currently presents to the hospital with chest pressure and heart racing shortness of breath. On arrival her EKG demonstrated A. fib with rapid ventricular response to history x-ray demonstrated COPD cardiomegaly with vascular congestion and edema EKG this morning demonstrates A. fib with rapid ventricular response. Pressure was 100/68 sats were 91% on 5 L. White count was 18.4 on admission 21.2 this morning BUN 39 creatinine 1.4 this is her baseline Above per Dr. Paz 08/19/2018 Patient examined at the bedside. Patient states she is feeling tired and short of breath today. She remains in afib. Rate uncontrolled. She was started on an amiodarone drip per cardiology. Urinalysis was ordered yesterday per cardiology , which did not reveal infectious process. Creatinine today 4.6. Creatinine yesterday was 1.44. Creatinine was 1.7 in July of this year and 1.9 earlier this morning. Nephrology was placed on consult. 08/20/2018 Patient examined this morning at the bedside. She is sitting up in the chair eating breakfast. Denies nausea or vomiting. She reports improvement in her dyspnea. Amio drip was started yesterday per cardiology. Heart rate remains uncontrolled between 100-120. Creatinine today is 1.30, down from 1.60. Potassium is 3.5. WBC is trending downward 13.2 today from 16.3. She remains on antibiotics. PHYSICAL EXAM: GENERAL: This is a 88-year-old female in no apparent distress at the time of examination. Pleasant and cooperative. HEENT: Head is atraumatic, normocephalic. Pupils are equal, round, and reactive to light. Sclerae anicteric. Conjunctivae are clear. Mucus membranes of the mouth are moist. Neck is supple. RESPIRATORY: Diminished with crackles to bilateral bases, improved from yesterday. No use of accessory muscles. Patient maintaining oxygen saturation greater than 92%. No chest wall tenderness is noted on palpation or with deep breathing. CARDIOVASCULAR: Irregular rhythm. S1 and S2 noted. No JVD noted. No S3 or S4 noted. GASTROINTESTINAL: No distention noted. Abdomen soft and round. Normal active bowel sounds auscultated x 4 quadrants. No pain or tenderness noted upon palpation. INTEGUMENTARY: No cyanosis. No jaundice. No rashes noted. No cellulitis noted. EXTREMITIES: 2+ peripheral pulses. No lower extremity edema. No calf tenderness noted. NEUROLOGIC: Cranial nerves II-XII intact. PSYCHIATRIC: Awake, alert, and oriented X 3. Appropriate affect. Intact judgement and insight. ASSESSMENT: Atrial fibrillation with RVR, on long-term anticoagulation with Eliquis Acute exacerbation of systolic congestive heart failure, EF 30-35% Leukocytosis and bilateral atelectasis and/or consolidation, can not rule out underlying pneumonia History of hypertension Osteoarthritis Chronic kidney disease, stage III Abnormal troponins, cardiology following Hypokalemia, secondary to diuresis PLAN: Cardiology and nephrology on consult. Appreciate recommendations and input Continue IV lasix per cardiology Await further input from cardiology regarding uncontrolled heart rate Wean oxygen as tolerated Continue antibiotics Replace potassium Home meds as appropriate Monitor labs GI prophylaxis: Protonix 40 mg PO Daily DVT prophylaxis: Eliquis Monitor vital signs and address as appropriate Discharge planning: Patient to return home when stable Further recommendations pending patient's course Nurse practitioner note has been reviewed by physician. Signing provider agrees with the documented findings, assessment, and plan of care. Objective - Vital Signs Vital signs: Vital Signs Temp 97.4 F L 08/20/18 08:00 Pulse 118 H 08/20/18 08:00 Resp 16 08/20/18 08:00 BP 113/67 08/20/18 08:00 Pulse Ox 91 L 08/20/18 08:00 Intake & Output 08/19/18 08/20/18 08/20/18 18:59 06:59 18:59 Intake Total 360 425.817 240 Balance 360 425.817 240 Weight 72.2 kg Intake: Intake, IV Titration 425.817 Amount Amiodarone 450 mg In 425.817 Dextrose 5% in Water 250 ml @ 1 MG/MIN 34.53 mls/ hr IV .Q7H31M [facility] Rx#: [id number] Oral 360 240 Other: Voiding Method Toilet # Voids 2 1 - Labs CBC & Chem 7: 08/20/18 06:28 08/20/18 06:28 Labs: Abnormal Lab Results - Last 24 Hours (Table) 08/19/18 08/19/18 08/20/18 Range/Units 10:39 10:39 06:28 WBC 16.3 H 13.2 H (3.8-10.6) k/uL MCHC 30.5 L (31.0-37.0) g/dL Plt Count 138 L (150-450) k/uL Neutrophils # 10.7 H (1.3-7.7) k/uL BUN 40 H (7-17) mg/dL Creatinine 1.60 H (0.52-1.04) mg/dL Glucose 111 H (74-99) mg/dL Total Bilirubin 2.7 H (0.2-1.3) mg/dL Total Protein (6.3-8.2) g/dL Albumin 3.4 L (3.5-5.0) g/dL 08/20/18 Range/Units 06:28 WBC (3.8-10.6) k/uL MCHC (31.0-37.0) g/dL Plt Count (150-450) k/uL Neutrophils # (1.3-7.7) k/uL BUN 44 H (7-17) mg/dL Creatinine 1.30 H (0.52-1.04) mg/dL Glucose (74-99) mg/dL Total Bilirubin 2.7 H (0.2-1.3) mg/dL Total Protein 6.0 L (6.3-8.2) g/dL Albumin 3.1 L (3.5-5.0) g/dL
--- NOTE | 2018-08-20 14:59 | P.PN ---
Subjective Progress Note Date: 08/20/18 This is a pleasant 88-year-old female who follows regularly with Dr. VC Wang in the office. She has a known history of paroxysmal atrial fibrillation, renal insufficiency, hypertension, osteoarthritis with recent hip fracture, she resides at [facility]. She presented to the hospital on this occasion with symptoms of chest pressure, feeling her heart racing fast, and associated shortness of breath. EMS arrival, her EKG showed atrial fibrillation with a rapid ventricular response. Chest x-ray showed COPD, cardiomegaly, vascular congestion and mild edema. Small left effusion cannot be excluded. She was given a dose of IV Lasix in the emergency room and then resumed on her home dose of oral diuretics. Repeat chest x-ray was performed this morning which revealed congestive heart failure superimposed on COPD, early interstitial pulmonary edema worse from prior x-ray. EKG shows atrial fibrillation with rapid ventricular response. I pressure 100/68 with a heart rate of 108 to 1:30, 91% on 5 L of oxygen. White blood cell count 18.4 on admission, 21.2 this morning. Hemoglobin 15.1, platelet count 190. Sodium 143 , potassium 4.6, BUN 39, creatinine 1.4. BNP level 2720. TSH 1.28. Troponin 0.023, 0.344, 0.426. At the time of my examination this morning, patient had been given Xanax she was quite sleepy, she is still complaining of significant shortness of breath, her heart rate continues to be in the 1 teens to 130 range on Cardizem at 10 mg per hour. 2017 Patient was seen and examined this morning, much more awake today. Continues to be in A. fib with a heart rate in the 120 to 1:30 range. We have initiated IV amiodarone, we'll continue current dose of beta annemarie. Blood pressure 100/ 60. White blood cell count 16.3, hemoglobin 13.5, platelet count 172. Sodium 140, potassium 3.7, BUN 40, creatinine 1.6. 08/20/2018 Patient was seen and examined this morning, significantly better overall today. Heart rate much improved but continues to be in the low 100s today. IV amiodarone was discontinued and patient has been initiated on by mouth amiodarone. Objective - Vital Signs Vital signs: Vital Signs Temp 97.4 F L 08/20/18 08:00 Pulse 103 H 08/20/18 12:00 Resp 16 08/20/18 12:00 BP 98/65 08/20/18 11:28 Pulse Ox 99 08/20/18 11:28 Intake & Output 08/19/18 08/20/18 08/20/18 18:59 06:59 18:59 Intake Total 360 425.817 240 Balance 360 425.817 240 Weight 72.2 kg Intake: Intake, IV Titration 425.817 Amount Amiodarone 450 mg In 425.817 Dextrose 5% in Water 250 ml @ 1 MG/MIN 34.53 mls/ hr IV .Q7H31M [facility] Rx#: [id number] Oral 360 240 Other: Voiding Method Toilet # Voids 2 1 2 - Exam PHYSICAL EXAMINATION: GENERAL: 88-year-old female in no acute distress at the time of my examination HEENT: Head is atraumatic, normocephalic. Pupils equal, round. Sclera anicteric. Conjunctiva are clear. Mucous membranes of the mouth are moist. Neck is supple. There is no elevated jugular venous pressure. No carotid bruit is heard. HEART EXAMINATION: R S1 and S2 irregularly irregular a systolic murmur is heard. CHEST EXAMINATION: Severe fine rales to bilateral bases with diminished air entry to the bases. ABDOMEN: Soft, nontender. Bowel sounds are heard. No organomegaly noted. EXTREMITIES: 2+ peripheral pulses with trace evidence of peripheral edema and no calf tenderness noted. NEUROLOGIC patient is awake, alert and oriented X3. - Labs CBC & Chem 7: 08/20/18 06:28 08/20/18 06:28 Labs: Abnormal Lab Results - Last 24 Hours (Table) 08/20/18 08/20/18 Range/Units 06:28 06:28 WBC 13.2 H (3.8-10.6) k/uL Plt Count 138 L (150-450) k/uL BUN 44 H (7-17) mg/dL Creatinine 1.30 H (0.52-1.04) mg/dL Total Bilirubin 2.7 H (0.2-1.3) mg/dL Total Protein 6.0 L (6.3-8.2) g/dL Albumin 3.1 L (3.5-5.0) g/dL Assessment and Plan Plan: Assessment and plan #1 atrial fibrillation with rapid ventricular response, paroxysmal, on anticoagulation in the form of Eliquis #2 systolic congestive heart failure acute on chronic, could be exacerbated by A. fib with RVR. #3 hypertension #4 recent hip surgery Plan EchoCardiogram with Doppler study reveals an ejection fraction of 30-35%, mild to moderate tricuspid regurg. Discontinue IV amiodarone and started on oral amiodarone today. DNP note has been reviewed, I agree with a documented findings and plan of care. Patient was seen and examined.
[2018-08-20] MEDS: AZITHROMYCIN 500 MG TAB PO SCH (21:23)
[2018-08-20] MEDS: ALPRAZolam 0.25 MG TAB PO PRN (21:24)
[2018-08-21] MEDS: PANTOPRAZOLE 40 MG TABLET PO SCH (06:32)
[2018-08-21 07:00] LABS: Basophils % (A) 0 %; Eosinophils # (A) 0.3 k/uL (0-0.7); Eosinophils % (A) 2 %; HCT 41.4 % (34.0-46.0); HGB 12.9 gm/dL (11.4-16.0); Lymphocytes # (A) 4.3 k/uL (1.0-4.8); Lymphocytes % (A) 35 %; MCH 28.8 pg (25.0-35.0); MCHC 31.2 g/dL (31.0-37.0); MCV 92.3 fL (80.0-100.0); Mean Platelet Volume 8.4; Monocytes # (A) 0.7 k/uL (0-1.0); Monocytes % (A) 6 %; Neutrophils # (A) 6.7 k/uL (1.3-7.7); Neutrophils % (A) 55 %; Platelet Count 185 k/uL (150-450); RBC 4.49 m/uL (3.80-5.40); RDW 12.9 % (11.5-15.5); WBC 12.3 k/uL (3.8-10.6)
[2018-08-21 07:15] LABS: Albumin 2.9 g/dL (3.5-5.0); Potassium 3.4 mmol/L (3.5-5.1); Total Protein 5.6 g/dL (6.3-8.2)
[2018-08-21] MEDS: METOPROLOL TARTRATE 50 MG TAB PO SCH ×2 (07:51→20:28)
[2018-08-21] MEDS: AMIODARONE 200 MG TAB PO SCH ×2 (07:51→20:29)
[2018-08-21] MEDS: ALLOPURINOL 100 MG TAB PO SCH (07:51)
[2018-08-21] MEDS: CITALOPRAM HYDROBROMIDE 20 MG TAB PO SCH (07:51)
[2018-08-21] MEDS: APIXABAN 2.5 MG TABLET PO SCH ×2 (07:52→20:29)
[2018-08-21] MEDS: FUROSEMIDE 10 MG/ML 4 ML VIAL IV SCH (07:52)
[2018-08-21] MEDS: VIT A,C & E-LUTEIN-MINERALS 1 EACH TAB PO SCH ×2 (07:54→20:29)
--- NOTE | 2018-08-21 10:26 | P.PN ---
Subjective Progress Note Date: 08/21/18 This is a pleasant 88-year-old female patient of Dr. Mccabe's. Known history of paroxysmal atrial fibrillation renal insufficiency hypertension osteoarthritis with recent hip fracture. Patient resides at [facility]. Currently presents to the hospital with chest pressure and heart racing shortness of breath. On arrival her EKG demonstrated A. fib with rapid ventricular response to history x-ray demonstrated COPD cardiomegaly with vascular congestion and edema EKG this morning demonstrates A. fib with rapid ventricular response. Pressure was 100/68 sats were 91% on 5 L. White count was 18.4 on admission 21.2 this morning BUN 39 creatinine 1.4 this is her baseline Above per Dr. Paz 08/19/2018 Patient examined at the bedside. Patient states she is feeling tired and short of breath today. She remains in afib. Rate uncontrolled. She was started on an amiodarone drip per cardiology. Urinalysis was ordered yesterday per cardiology , which did not reveal infectious process. Creatinine today 4.6. Creatinine yesterday was 1.44. Creatinine was 1.7 in July of this year and 1.9 earlier this morning. Nephrology was placed on consult. 08/20/2018 Patient examined this morning at the bedside. She is sitting up in the chair eating breakfast. Denies nausea or vomiting. She reports improvement in her dyspnea. Amio drip was started yesterday per cardiology. Heart rate remains uncontrolled between 100-120. Creatinine today is 1.30, down from 1.60. Potassium is 3.5. WBC is trending downward 13.2 today from 16.3. She remains on antibiotics. 08/21/2018 Patient examined at the bedside. Patient is resting comfortably in bed. Appetite is good. Denies nausea or vomiting. Patient has been transitioned to oral amiodarone. Heart rate is 90-102. She remains on IV lasix per cardiology. OT evaluated patient and recommended [facility] at discharge. Patient states she does not want to go to rehab. CORN MILLER assessed patients ability to ambulate while in the room. Patient was able to get out of bed independently. Patient walked around her room with her walker without any difficulty. Gait was steady. Patient states she has been working with a physical therapist at [facility] 3 times a week. Patient states her bathroom has emergency call cords and she also wears a safety bracelet in case of an emergency. Patient is weaker than normal, but will likely be able to return home to [facility] safely. PHYSICAL EXAM: GENERAL: This is a 88-year-old female in no apparent distress at the time of examination. Pleasant and cooperative. HEENT: Head is atraumatic, normocephalic. Pupils are equal, round, and reactive to light. Sclerae anicteric. Conjunctivae are clear. Mucus membranes of the mouth are moist. Neck is supple. RESPIRATORY: Diminished. No use of accessory muscles. Patient maintaining oxygen saturation greater than 92%. No chest wall tenderness is noted on palpation or with deep breathing. CARDIOVASCULAR: Irregular rhythm. S1 and S2 noted. No JVD noted. No S3 or S4 noted. GASTROINTESTINAL: No distention noted. Abdomen soft and round. Normal active bowel sounds auscultated x 4 quadrants. No pain or tenderness noted upon palpation. INTEGUMENTARY: No cyanosis. No jaundice. No rashes noted. No cellulitis noted. EXTREMITIES: 2+ peripheral pulses. No lower extremity edema. No calf tenderness noted. NEUROLOGIC: Cranial nerves II-XII intact. PSYCHIATRIC: Awake, alert, and oriented X 3. Appropriate affect. Intact judgement and insight. ASSESSMENT: Atrial fibrillation with RVR, on long-term anticoagulation with Eliquis Acute exacerbation of systolic congestive heart failure, EF 30-35% Leukocytosis and bilateral atelectasis and/or consolidation, can not rule out underlying pneumonia History of hypertension Osteoarthritis Chronic kidney disease, stage III Abnormal troponins, cardiology following Hypokalemia, secondary to diuresis PLAN: Cardiology and nephrology on consult. Appreciate recommendations and input IV lasix per cardiology. Recommend transitioning to oral Continue antibiotics Replace potassium. 60meq today. Repeat potassium tomorrow Home meds as appropriate Monitor labs GI prophylaxis: Protonix 40 mg PO Daily DVT prophylaxis: Eliquis Monitor vital signs and address as appropriate Discharge planning: Patient to return home when stable. Patient lives at [facility] and has been getting PT 3x/week Further recommendations pending patient's course Possible discharge in the next 24-48 hours Nurse practitioner note has been reviewed by physician. Signing provider agrees with the documented findings, assessment, and plan of care. Objective - Vital Signs Vital signs: Vital Signs Temp 97.4 F L 08/21/18 07:49 Pulse 102 H 08/21/18 07:49 Resp 17 08/21/18 07:49 BP 107/80 08/21/18 07:49 Pulse Ox 98 08/21/18 07:49 Intake & Output 08/20/18 08/21/18 08/21/18 18:59 06:59 18:59 Intake Total 240 100 240 Balance 240 100 240 Weight 71.6 kg Intake: Intake, IV Titration 100 Amount cefTRIAXone 1,000 mg In 100 Sodium Chloride 0.9% 50 ml @ 100 mls/hr IVPB Q24H [facility] Rx#:[id number] Oral 240 240 Other: Voiding Method Toilet Toilet # Voids 2 1 - Labs CBC & Chem 7: 08/21/18 06:23 08/21/18 06:23 Labs: Abnormal Lab Results - Last 24 Hours (Table) 08/21/18 08/21/18 Range/Units 06:23 06:23 WBC 12.3 H (3.8-10.6) k/uL Potassium 3.4 L (3.5-5.1) mmol/L Carbon Dioxide 31 H (22-30) mmol/L BUN 41 H (7-17) mg/dL Creatinine 1.42 H (0.52-1.04) mg/dL Total Bilirubin 2.0 H (0.2-1.3) mg/dL Total Protein 5.6 L (6.3-8.2) g/dL Albumin 2.9 L (3.5-5.0) g/dL Microbiology - Last 24 Hours (Table) 08/18/18 22:20 Urine Culture - Final Urine,Voided
[2018-08-21] MEDS: POTASSIUM CHLORIDE ER 20 MEQ TAB.ER PO SCH ×3 (11:22→13:27)
--- NOTE | 2018-08-21 14:08 | P.PN ---
Subjective Progress Note Date: 08/21/18 This is a pleasant 88-year-old female who follows regularly with Dr. VC Wang in the office. She has a known history of paroxysmal atrial fibrillation, renal insufficiency, hypertension, osteoarthritis with recent hip fracture, she resides at [facility]. She presented to the hospital on this occasion with symptoms of chest pressure, feeling her heart racing fast, and associated shortness of breath. EMS arrival, her EKG showed atrial fibrillation with a rapid ventricular response. Chest x-ray showed COPD, cardiomegaly, vascular congestion and mild edema. Small left effusion cannot be excluded. She was given a dose of IV Lasix in the emergency room and then resumed on her home dose of oral diuretics. Repeat chest x-ray was performed this morning which revealed congestive heart failure superimposed on COPD, early interstitial pulmonary edema worse from prior x-ray. EKG shows atrial fibrillation with rapid ventricular response. I pressure 100/68 with a heart rate of 108 to 1:30, 91% on 5 L of oxygen. White blood cell count 18.4 on admission, 21.2 this morning. Hemoglobin 15.1, platelet count 190. Sodium 143 , potassium 4.6, BUN 39, creatinine 1.4. BNP level 2720. TSH 1.28. Troponin 0.023, 0.344, 0.426. At the time of my examination this morning, patient had been given Xanax she was quite sleepy, she is still complaining of significant shortness of breath, her heart rate continues to be in the 1 teens to 130 range on Cardizem at 10 mg per hour. 2017 Patient was seen and examined this morning, much more awake today. Continues to be in A. fib with a heart rate in the 120 to 1:30 range. We have initiated IV amiodarone, we'll continue current dose of beta annemarie. Blood pressure 100/ 60. White blood cell count 16.3, hemoglobin 13.5, platelet count 172. Sodium 140, potassium 3.7, BUN 40, creatinine 1.6. 08/20/2018 Patient was seen and examined this morning, significantly better overall today. Heart rate much improved but continues to be in the low 100s today. IV amiodarone was discontinued and patient has been initiated on by mouth amiodarone. 08/21/2018 Patient seen and examined this morning, feeling well overall, she did ambulate in the hallway today was mildly short of breath, oxygen saturations maintained at 97%. Objective - Vital Signs Vital signs: Vital Signs Temp 97.4 F L 08/21/18 07:49 Pulse 100 08/21/18 11:19 Resp 17 08/21/18 11:19 BP 100/70 08/21/18 11:19 Pulse Ox 95 08/21/18 11:19 Intake & Output 08/20/18 08/21/18 08/21/18 18:59 06:59 18:59 Intake Total 240 100 240 Balance 240 100 240 Weight 71.6 kg Intake: Intake, IV Titration 100 Amount cefTRIAXone 1,000 mg In 100 Sodium Chloride 0.9% 50 ml @ 100 mls/hr IVPB Q24H [facility] Rx#:[id number] Oral 240 240 Other: Voiding Method Toilet Toilet # Voids 2 1 - Exam PHYSICAL EXAMINATION: GENERAL: 88-year-old female in no acute distress at the time of my examination HEENT: Head is atraumatic, normocephalic. Pupils equal, round. Sclera anicteric. Conjunctiva are clear. Mucous membranes of the mouth are moist. Neck is supple. There is no elevated jugular venous pressure. No carotid bruit is heard. HEART EXAMINATION: R S1 and S2 irregularly irregular a systolic murmur is heard. CHEST EXAMINATION: Severe fine rales to bilateral bases with diminished air entry to the bases. ABDOMEN: Soft, nontender. Bowel sounds are heard. No organomegaly noted. EXTREMITIES: 2+ peripheral pulses with trace evidence of peripheral edema and no calf tenderness noted. NEUROLOGIC patient is awake, alert and oriented X3. - Labs CBC & Chem 7: 08/21/18 06:23 08/21/18 06:23 Labs: Abnormal Lab Results - Last 24 Hours (Table) 08/21/18 08/21/18 Range/Units 06:23 06:23 WBC 12.3 H (3.8-10.6) k/uL Potassium 3.4 L (3.5-5.1) mmol/L Carbon Dioxide 31 H (22-30) mmol/L BUN 41 H (7-17) mg/dL Creatinine 1.42 H (0.52-1.04) mg/dL Total Bilirubin 2.0 H (0.2-1.3) mg/dL Total Protein 5.6 L (6.3-8.2) g/dL Albumin 2.9 L (3.5-5.0) g/dL Microbiology - Last 24 Hours (Table) 08/18/18 22:20 Urine Culture - Final Urine,Voided Assessment and Plan Plan: Assessment and plan #1 atrial fibrillation with rapid ventricular response, paroxysmal, on anticoagulation in the form of Eliquis #2 systolic congestive heart failure acute on chronic, could be exacerbated by A. fib with RVR. #3 hypertension #4 recent hip surgery Plan We will increase the dose of beta annemarie to 75 mg one tablet by mouth twice a day. From cardiology's perspective she may be able to be discharged home today. We'll make a follow-up appointment with Dr. VC Wang in the office post discharge. Patient continuing 60 mg by mouth Lasix twice a day. DNP note has been reviewed, I agree with a documented findings and plan of care. Patient was seen and examined.
[2018-08-21] MEDS: FUROSEMIDE 20 MG TAB PO SCH (15:30)
[2018-08-21] MEDS: ALPRAZolam 0.25 MG TAB PO PRN (20:28)
[2018-08-21] MEDS: AZITHROMYCIN 500 MG TAB PO SCH (20:29)
[2018-08-22 06:23] LABS: Basophils % (A) 0 %; Eosinophils # (A) 0.2 k/uL (0-0.7); Eosinophils % (A) 1 %; HCT 44.5 % (34.0-46.0); HGB 13.9 gm/dL (11.4-16.0); Lymphocytes % (A) 30 %; MCHC 31.3 g/dL (31.0-37.0); MCV 92.7 fL (80.0-100.0); Mean Platelet Volume 8.1; Monocytes # (A) 0.6 k/uL (0-1.0); Monocytes % (A) 5 %; Neutrophils # (A) 8.2 k/uL (1.3-7.7); Neutrophils % (A) 61 %; Platelet Count 230 k/uL (150-450); RDW 13.2 % (11.5-15.5); WBC 13.3 k/uL (3.8-10.6)
[2018-08-22 06:43] LABS: Albumin 3.3 g/dL (3.5-5.0); Calcium 9.5 mg/dL (8.4-10.2); Total Bilirubin 2.1 mg/dL (0.2-1.3); Total Protein 6.1 g/dL (6.3-8.2)
[2018-08-22 08:22] VITALS: BP 120/76; PULSE 105; RESP 17; TEMP 97.1
[2018-08-22] MEDS: FUROSEMIDE 20 MG TAB PO SCH (08:23)
[2018-08-22] MEDS: APIXABAN 2.5 MG TABLET PO SCH (08:23)
[2018-08-22] MEDS: PANTOPRAZOLE 40 MG TABLET PO SCH (08:23)
[2018-08-22] MEDS: AMIODARONE 200 MG TAB PO SCH (08:23)
[2018-08-22] MEDS: CITALOPRAM HYDROBROMIDE 20 MG TAB PO SCH (08:23)
[2018-08-22] MEDS: ALLOPURINOL 100 MG TAB PO SCH (08:23)
[2018-08-22] MEDS: VIT A,C & E-LUTEIN-MINERALS 1 EACH TAB PO SCH (08:24)
[2018-08-22] MEDS: METOPROLOL TARTRATE 50 MG TAB PO SCH (08:25)
--- NOTE | 2018-08-22 09:31 | P.DS ---
Providers Date of admission: 08/17/18 08:06 Expected date of discharge: 08/22/18 Attending physician: William Mccabe Consults: 08/17/18 08:06 Consult Physician Stat Consulting Provider: Juwan Hensley Consult Reason/Comments: RVR Do you want consulting provider notified?: Already Contacted 08/18/18 22:09 Consult Physician Routine Consulting Provider: Anabella Orozco Consult Reason/Comments: Renal Failure Do you want consulting provider notified?: Yes, Notify in am Primary care physician: William Mccabe [place] [facility] Course: This is a pleasant 88-year-old female patient of Dr. Mccabe's. Known history of paroxysmal atrial fibrillation renal insufficiency hypertension osteoarthritis with recent hip fracture. Patient resides at [facility]. Currently presents to the hospital with chest pressure and heart racing shortness of breath. On arrival her EKG demonstrated A. fib with rapid ventricular response to history x-ray demonstrated COPD cardiomegaly with vascular congestion and edema EKG this morning demonstrates A. fib with rapid ventricular response. Pressure was 100/68 sats were 91% on 5 L. White count was 18.4 on admission 21.2 this morning BUN 39 creatinine 1.4 this is her baseline Above per Dr. Paz 08/19/2018 Patient examined at the bedside. Patient states she is feeling tired and short of breath today. She remains in afib. Rate uncontrolled. She was started on an amiodarone drip per cardiology. Urinalysis was ordered yesterday per cardiology , which did not reveal infectious process. Creatinine today 4.6. Creatinine yesterday was 1.44. Creatinine was 1.7 in July of this year and 1.9 earlier this morning. Nephrology was placed on consult. 08/20/2018 Patient examined this morning at the bedside. She is sitting up in the chair eating breakfast. Denies nausea or vomiting. She reports improvement in her dyspnea. Amio drip was started yesterday per cardiology. Heart rate remains uncontrolled between 100-120. Creatinine today is 1.30, down from 1.60. Potassium is 3.5. WBC is trending downward 13.2 today from 16.3. She remains on antibiotics. 08/21/2018 Patient examined at the bedside. Patient is resting comfortably in bed. Appetite is good. Denies nausea or vomiting. Patient has been transitioned to oral amiodarone. Heart rate is 90-102. She remains on IV lasix per cardiology. OT evaluated patient and recommended [facility] at discharge. Patient states she does not want to go to rehab. EDUCATIONAL THERAPIST assessed patients ability to ambulate while in the room. Patient was able to get out of bed independently. Patient walked around her room with her walker without any difficulty. Gait was steady. Patient states she has been working with a physical therapist at [facility] 3 times a week. Patient states her bathroom has emergency call cords and she also wears a safety bracelet in case of an emergency. Patient is weaker than normal, but will likely be able to return home to [facility] safely. 08/22/2018 Patient agreeable to [facility] now. Requesting [place]. Lasix has been changed to 60mg PO BID. Metoprolol increased to 75mg BID. She is stable for discharge today. 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 Signing provider agrees with the documented findings, assessment, and plan of care. Plan - Discharge Summary Discharge Rx Participant: Yes New Discharge Prescriptions: New Amiodarone [Cordarone] 400 mg PO BID tab Azithromycin [Zithromax] 500 mg PO HS #3 tab Cefuroxime Axetil [Ceftin] 500 mg PO BID 3 Days #6 tab Furosemide [Lasix] 60 mg PO BID@0900,1600 tab Metoprolol Tartrate [Lopressor] 75 mg PO BID tab Continue ALPRAZolam [Xanax] 0.25 mg PO DAILY PRN PRN Reason: Anxiety Ergocalciferol [Vitamin D2 (DRISDOL)] 50,000 unit PO Q7D Allopurinol [Zyloprim] 100 mg PO DAILY Vit C/E/Zn/Coppr/Lutein/Zeaxan [Preservision Areds 2 Softgel] 1 cap PO BID Lansoprazole 30 mg PO DAILY Citalopram Hydrobromide [CeleXA] 20 mg PO DAILY Apixaban [Eliquis] 2.5 mg PO BID Discontinued Metoprolol Tartrate [Lopressor] 25 mg PO BID Furosemide [Lasix] 40 mg PO Q48H Furosemide [Lasix] 20 mg PO Q48H Discharge Medication List ALPRAZolam [Xanax] 0.25 mg PO DAILY PRN 05/14/16 [History] Allopurinol [Zyloprim] 100 mg PO DAILY 08/17/18 [History] Apixaban [Eliquis] 2.5 mg PO BID 08/17/18 [History] Citalopram Hydrobromide [CeleXA] 20 mg PO DAILY 08/17/18 [History] Ergocalciferol [Vitamin D2 (DRISDOL)] 50,000 unit PO Q7D 08/17/18 [History] Lansoprazole 30 mg PO DAILY 08/17/18 [History] Vit C/E/Zn/Coppr/Lutein/Zeaxan [Preservision Areds 2 Softgel] 1 cap PO BID 08/17 [History] Amiodarone [Cordarone] 400 mg PO BID tab 08/21/18 [Rx] Azithromycin [Zithromax] 500 mg PO HS #3 tab 08/21/18 [Rx] Cefuroxime Axetil [Ceftin] 500 mg PO BID 3 Days #6 tab 08/21/18 [Rx] Furosemide [Lasix] 60 mg PO BID@0900,1600 tab 08/21/18 [Rx] Metoprolol Tartrate [Lopressor] 75 mg PO BID tab 08/21/18 [Rx] Follow up Appointment(s)/Referral(s): Panchito Paz Jr, DO [Doctor of Osteopathic Medicine] - 1 Week None,Stated [REFERRING] - 1-2 days Jaime Javier DO [STAFF PHYSICIAN] - 1 Week Grabiel Wang MD [STAFF PHYSICIAN] - 1 Week Patient Instructions/Handouts: A-fib (Atrial Fibrillation) (DC), Chest Pain (DC ) Activity/Diet/Wound Care/Special Instructions: Lives at [facility] Activity as tolerated Heart healthy diet Discharge Disposition: TRANSFER TO SNF/ECF
--- NOTE | 2018-08-22 18:52 | PN ---
PROGRESS NOTE Patient is seen for followup for acute kidney injury and top of chronic kidney disease. Her renal function has been fairly stable. Creatinine did peak at 1.6 and it is down to 1.4. This morning it is 1.5. The patient is actually being discharged today to rehab. PHYSICAL EXAMINATION: Blood pressure was 120/76 this morning. Heart rate 105 per minute. She is afebrile. Examination of the heart S1, S2. Examination lungs bilateral breath sounds are heard. Abdomen is soft, nontender. Examination of lower extremity shows no significant edema. LABS: Show sodium 139, potassium 4.0, BUN 40, serum creatinine 1.5, hemoglobin 13.9 g/dL. ASSESSMENT: 1. Chronic kidney disease, NKF stage III, secondary to nephrosclerosis. 2. Acute kidney injury secondary to acute tubular necrosis. The serum creatinine is slightly elevated today. However, we will monitor labs and repeat as outpatient. The patient does have an atrophic right kidney and relatively small left kidney on ultrasound. 3. Atrial fibrillation with RVR initially, currently with controlled ventricular response maintained on Lopressor. 4. Volume overload, now improved. PLAN: Patient can be discharged. Follow up as outpatient in about 1-2 weeks. MMODL / IJN: [id number] /
== END 2018-08-22 10:59 | DRG 291 ==
LOC: EC 06:36 → 3SCARD 08:06
PROVIDERS: ADMIT Family Medicine; ATTEND Family Medicine
DX: I13.0 Hypertensive heart and chronic kidney disease with heart failure and stage 1 through stage 4 chronic kidney disease, or unspecified chronic kidney disease (principal); I50.23 Acute on chronic systolic (congestive) heart failure; N17.0 Acute kidney failure with tubular necrosis; I48.92 Unspecified atrial flutter; I48.0 Paroxysmal atrial fibrillation; E87.6 Hypokalemia; F32.9 Major depressive disorder, single episode, unspecified; I08.1 Rheumatic disorders of both mitral and tricuspid valves; N18.3 Chronic kidney disease, stage 3 (moderate); J44.9 Chronic obstructive pulmonary disease, unspecified; K21.9 Gastro-esophageal reflux disease without esophagitis; M19.90 Unspecified osteoarthritis, unspecified site; N26.1 Atrophy of kidney (terminal); T50.2X5A Adverse effect of carbonic-anhydrase inhibitors, benzothiadiazides and other diuretics, initial encounter; Z79.01 Long term (current) use of anticoagulants; Z79.899 Other long term (current) drug therapy; Z87.891 Personal history of nicotine dependence; Z98.51 Tubal ligation status
CPT/HCPCS: 36415; 71046; 80048; 80053; 81001; 82550; 82553; 83735; 83880; 84443; 84484; 85025; 85379; 85610; 85730; 87086; 93005; 93306; 96365; 96366; 96374; 96375; 96376; 99291

== ENCOUNTER → 2018-09-30 | Outpatient (CLI) | payer MEDICARE ==
[2018-09-30 17:21] LABS: Appearance,Urine Clear (Clear); Bilirubin,Urine Negative (Negative); Blood,Urine Small (Negative); Color,Urine Yellow; Glucose,Urine (UA) Negative (Negative); Hyaline Casts,Urine 15 /lpf (0-2); Ketones,Urine Negative (Negative); Leukocyte Esterase,Urine Small (Negative); Mucus,Urine Rare /hpf; Nitrite,Urine Negative (Negative); Protein,Urine Negative (Negative); RBC,Urine 17 /hpf (0-5); Specific Gravity,Urine 1.011 (1.001-1.035); Squamous Epithelial Cell,Urine 3 /hpf (0-4); WBC,Urine 6 /hpf (0-5)
[2018-09-30 17:28] LABS: HCT 41.1 % (34.0-46.0); HGB 12.3 gm/dL (11.4-16.0); Hypochromasia Slight; MCH 28.9 pg (25.0-35.0); MCV 96.4 fL (80.0-100.0); Mean Platelet Volume 7.6; Platelet Count 211 k/uL (150-450); RBC 4.26 m/uL (3.80-5.40); RDW 14.9 % (11.5-15.5); WBC 11.6 k/uL (3.8-10.6)
[2018-09-30 18:17] LABS: Neutrophils # (M) 5.92 k/uL (1.3-7.7); Neutrophils % (M) 51 %
[2018-09-30 18:18] LABS: Monocytes # (M) 0.58 k/uL (0-1.0); Nucleated Red Blood Cells 0 /100 WBC (0-0); Total Cells Counted 100
[2018-09-30 18:20] LABS: Poikilocytosis (M) Present
[2018-09-30 23:19] LABS: Parathyroid Hormone Intact 237.9 pg/mL (14.0-72.0)
[2018-09-30 23:28] LABS: Albumin 4.1 g/dL (3.80-4.90); Iron Saturation 12.86 (12.00-45.00); Magnesium 2.2 mg/dL (1.5-2.4); Phosphorus 4.2 mg/dL (2.4-5.1); Potassium 3.7 mmol/L (3.5-5.5); Uric Acid 6.8 mg/dL (2.9-7.7)
[2018-09-30 23:37] LABS: Vitamin D 25 Hydroxy 32.6 ng/mL (30.0-100.0)
[2018-10-01 01:23] LABS: Creatinine,Urine Random 68.8 mg/dL
[2018-10-01 01:49] LABS: Total Protein,Urine Random 18.1 mg/dL (0.0-13.5)
== END | disposition home or self-care (01) ==
LOC: LABWHC1 15:59
PROVIDERS: ATTEND Internal Medicine Nephrology
DX: R31.29 Other microscopic hematuria (principal); E55.9 Vitamin D deficiency, unspecified; N18.4 Chronic kidney disease, stage 4 (severe); D63.1 Anemia in chronic kidney disease; E21.3 Hyperparathyroidism, unspecified; R80.9 Proteinuria, unspecified; M10.9 Gout, unspecified; E79.0 Hyperuricemia without signs of inflammatory arthritis and tophaceous disease
CPT/HCPCS: 36415; 80048; 81001; 82040; 82306; 82570; 82728; 83540; 83550; 83735; 83970; 84100; 84156; 84550; 85025